=== PATIENT | female | born 1960 | race Caucasian/White ===

== ENCOUNTER 2019-01-29 19:59 | Inpatient (IN) | payer MEDICARE ==
[~2019-01-29] VITALS: Ht 149.9 cm; Wt 89.7 kg
[2019-01-29] VITALS (9 sets, daily range): BP systolic 154–192; BP diastolic 85–134; BMI 33.9
--- NOTE | ~2019-01-29 | HEMODYNAMI ---
PATIENT:ZEN HEAD MEDICAL RECORD: [id number] : 60 LOCATION:[facility] D2305 ADMISSION DATE: 01/29/19 Generatedon:01/31/201911:56 Patient name: ZEN HEAD Patient #: [id number] SSN: [id number] : 1960 Date of study: 01/31/2019 Page: Of Hemodynamic Procedure Report Patient Data Patient Demographics Procedure consent was obtained First Name: ZEN Gender: Female Last Name: SONIDO : 1960 Patient #: [id number] Age: 58 year(s) Race: SSN: [id number] Additional ID: [id number] Contact details Address: [address] [place], [place] [address] State: [place] City: [place] Zip code: [address] Past Medical History Allergies Allergen Reaction Date Comments Reported Sulfa drugs 01/31/2019 Admission Admission Data Admission Date: 01/29/2019 Admission Time: 20:59 Arrival Date: 01/31/2019 Arrival Time: 0:00 Room #: D.2305 Insurance Payor: Medicare [facility] #: [id number] Height (in.): 59 BSA: 1.71 (m2) Height (cm.): 149.86 BMI: 33.89 (kg/m2) Weight (lbs.): 167.77 Weight (kg.): 76.1 Lab Results Lab Result Date: 01/31/2019 Lab Result Time: 0:00 Biochemistry Name Units Result Min Max BUN mg/dl 30 --(----)-* 7 18 Creatinine mg/dl 1.9 --(----)-* 0.6 1.3 eGFR ml/min 29 *-(----)-- 90 120 NONAFRICAN CBC Name Units Result Min Max Hematocrit % 37.7 *-(----)-- 42 54 Hemoglobin g/dl 11.6 *-(----)-- 13.5 17.5 Procedure Procedure Types Cath Procedure Diagnostic Procedure [facility] w/Coronaries Sedation Charges Moderate Sedation up to 30 minutes Procedure Description Procedure Date Procedure Date: 01/31/2019 Procedure Start Time: 11:11 Procedure End Time: 11:53 Procedure Staff Name Function Mil Goodson MD Performing Physician Jackelyn Finn RT Monitor Geena Pro RT Monitor Randell Garcia RN Nurse Roel Eng RT Scrub Leigh Fortune RT Scrub Procedure Data Cath Procedure Fluoroscopy Diagnostic fluoroscopy Total fluoroscopy Time: time: 12.7 min 12.7 min Diagnostic fluoroscopy Total fluoroscopy dose: dose: 1253 mGy 1253 mGy Contrast Material Contrast Material Type Amount (ml) Isovue 300 158 Entry Location Entry Primary Successful Side Size Upsize Upsize Entry Closure Succes sful Closure Location (Fr) 1 (Fr) 2 (Fr) Remarks Device Remarks Femoral Right 5 Fr 6 Fr Exoseal artery Short Estimated blood loss: 10 ml Diagnostic catheters Device Type Used For End Catheter Placement MULTIPACK JL 4.0 5Fr Procedure catheter MULTIPACK 3DRC 5Fr catheter MULTIPACK Pigtail 5 Fr catheter DIAGNOSTIC AL1 5Fr Procedure catheter ([id number]) Procedure Complications No complications Procedure Medications Medication Administration Route Dosage 0.9% NaCl I.V. 100 ml/hr Oxygen etCO2 Nasal cannula 4 l/min Heparin Flush Bag added to field 2 bags (1000units/500ml NS) Lidocaine 2% added to field 20 Oxygen 8 l/min Versed I.V. 2 mg Fentanyl I.V. 100 mcg Versed I.V. 2 mg Fentanyl I.V. 50 mcg Fentanyl I.V. 50 mcg Heparin Bolus I.V. 7500 units Hemodynamics Rest BSA: 1.71 (m2) HGB: 11.6 (g/dl) O2 Consumption: Estimated: 187.59 (ml/min) O2 Co nsumption indexed: Estimated:109.7 (ml/min/m) Heart Rate: 108 (bpm) Gradients Valve Time Site Site Mean SEP/DFP Peak To Heart Use 1 2 (mmHg) (sec/min) Peak Rate (mmHg) (bpm) Aortic 11:21 LV AO 53 Snapshots Pre Cath Intra NCS Post Cath Vital Signs Time Heart Resp SPO2 etCO2 NIBP (mmHg) Rhythm Pain Sedation Rate (ipm) (%) (mmHg) Status Level (bpm) 10:37:56 105 19 90 33.7 160/94(117) NSR 0 (11) 9(A) , No pain 10:42:26 102 13 90 36.7 152/92(116) NSR 0 (11) 9(A) , No pain 10:46:52 103 26 87 16.4 150/90(118) NSR 0 (11) 9(A) , No pain 10:51:17 106 15 87 20.2 160/94(131) NSR 0 (11) 9(A) , No pain 10:55:45 101 17 86 22.4 160/99(130) NSR 0 (11) 9(A) , No pain 11:00:15 106 17 90 0 155/91(120) NSR 0 (11) 9(A) , No pain 11:04:44 106 20 94 0 152/87(122) NSR 0 (11) 9(A) , No pain 11:09:10 103 18 94 0 147/93(114) NSR 0 (11) 9(A) , No pain 11:13:34 107 19 95 0 152/98(115) NSR 0 (11) 9(A) , No pain 11:18:01 108 18 95 0 153/91(113) NSR 0 (11) 9(A) , No pain 11:22:29 105 15 92 0 144/88(115) NSR 0 (11) 9(A) , No pain 11:26:51 107 21 93 0 158/91(119) NSR 0 (11) 9(A) , No pain 11:31:17 104 16 94 0 144/92(113) NSR 0 (11) 9(A) , No pain 11:35:41 107 29 94 0 148/86(112) NSR 0 (11) 9(A) , No pain 11:40:01 105 26 93 0 149/87(100) NSR 0 (11) 9(A) , No pain 11:44:28 108 18 95 0 155/90(118) NSR 0 (11) 9(A) , No pain 11:48:54 106 15 95 0 156/95(124) NSR 0 (11) 9(A) , No pain 11:53:23 109 17 96 0 159/97(127) NSR 0 (11) 9(A) , No pain Medications Time Medication Route Dose Verified Delivered Reason Notes Effectiveness by by 10:38:37 0.9% NaCl I.V. 100 Randell Randell Per physician ml/hr Radha Garcia RN RN 10:38:52 Oxygen etCO2 4 Randell Randell for low 02 sats Nasal l/min Radha Garcia cannula RN RN 10:39:03 Heparin Flush added 2 Randell Randell used for Bag to bags Radha Garcia procedure (1000units/500ml field RN RN NS) 10:39:15 Lidocaine 2% added 20ml Randell Randell for local to vial Lorjuan Garcia anesthetic field RN RN 10:58:49 Oxygen simple 8 Randell Randell for low 02 sats mask l/min Radha Garcia RN RN 11:11:30 Versed I.V. 2 mg Randell Randell for sedation Radha Garcia RN RN 11:11:52 Fentanyl I.V. 100 Randell Randell for sedation mcg Radha Garcia RN RN 11:13:39 Versed I.V. 2 mg Randell Randell for sedation Radha Garcia RN RN 11:15:16 Fentanyl I.V. 50 Randell Randell for sedation mcg Radha Garcia RN RN 11:27:51 Fentanyl I.V. 50 Randell Randell for sedation mcg Radha Garcia RN RN 11:37:15 Heparin Bolus I.V. 7,500 Randell Randell for units Radha Garcia anticoagulation RN synthetic plasterer Log Time Note 10:24:23 Procedure Status Urgent Heart Cath (IP). 10:24:25 Roel Eng RT(R) sent for patient. Start room use. 10:24:29 Time tracking: Regular hours (M-F 7:00 - 5:00) 10:24:34 Plan of Care:Hemodynamics will remain stable., Cardiac rhythm will remain stable., Comfort level will be maintained., Respiratory function will remain adequate., Patient/ family verbilizes understanding of procedure., Procedure tolerated without complication., Recovers from procedure without complications.. 10:24:46 Lab results completed and on chart. 10:25:04 Stress Test: no; N/A ? 10:25:09 Risk of Mortality: 1 10:25:14 Risk of blood transfusion: 3.7 10:25:18 Risk of HUMZA: 10.2 10:26:04 Informed consent obtained and on chart 10:28:50 Arrival Date: 01/31/2019 12:00:00 AM 10:28:56 Insurance Payor : Medicare 10:29:08 Patient Height : 59 inches 10:29:14 Patient Weight : 167.77 lbs 10:29:27 Diagnostic Cath Status : Elective 10:30:28 Patient received from ICU to CCL 1 Alert and oriented. Tansferred to table in Supine position. 10:30:29 Warm blankets applied, and rustam hugger turned on for patient comfort. 10:30:30 Correct patient and procedure confirmed by team. 10:30:33 ECG and BP/O2 sat monitors applied to patient. 10:30:38 Previous problem with sedation/anesthesia? No ? 10:30:46 H&P Date Dictated: 01/31/2019 Within 30 days and on chart.. 10:30:48 Pre-procedure instructions explained to patient. 10:30:48 Pre-op teaching completed and patient verbalized understanding. 10:30:59 Patient NPO since Midnight. 10:31:26 Is the patient allergic to Iodine/contrast media? No. 10:31:28 Was the patient premedicated? N/A 10:31:36 Patient diabetic? Yes. 10:31:39 If diabetic: On Metformin? Yes 10:31:50 Patient not . Patient is over age 55. 10:32:01 Snore? No 10:32:02 Sleep apnea? No 10:32:04 Deviated septum? No 10:32:05 Opens mouth fully? Yes 10:32:06 Sticks out tongue? Yes 10:32:09 Airway obstruction? No ? 10:32:12 Dentures? Yes in tight 10:34:12 If on Metformin: Last Dose? 01/29/2019 10:34:49 Is patient on blood thinner?No 10:35:16 Pre procedure: right dorsailis pedis pulse 2+ Normal; easily identifiable; not easily obliterated 10:35:29 IV patent on arrival in right hand with 0.9% NaCl at O. 10:36:00 Patient pain scale 0/10 ANXIOUS. 10:36:25 Right groin area was prepped with chlora-prep and draped in sterile fashion 10:36:27 Alarms reviewed by R. N. 10:36:27 Sharps counted by scrub and verified by R.N. 10:36:36 Vital chart was started 10:36:54 Rhythm: sinus tachycardia 10:38:37 0.9% NaCl 100 ml/hr I.V. was administered by Randell Garcia RN; Per physician; Verbal order read back and verified. 10:38:52 Oxygen 4 l/min etCO2 Nasal cannula was administered by Randell Garcia RN; for low 02 sats; Verbal order read back and verified. 10:39:03 Heparin Flush Bag (1000units/500ml NS) 2 bags added to field was administered by Randell Garcia RN; used for procedure; Verbal order read back and verified. 10:39:15 Lidocaine 2% 20ml vial added to field was administered by Randell Garcia RN; for local anesthetic; Verbal order read back and verified. 10:39:31 Use device set Femoral Dx 10:39:39 ACIST Syringe (70274) opened to sterile field. 10:39:39 Bag Decanter (2002S) opened to sterile field. 10:39:45 Medline Cath Pack ([id number]) opened to sterile field. 10:39:47 ACIST Hand Control (26445) opened to sterile field. 10:39:48 ACIST Manifold (12286) opened to sterile field. 10:39:50 Tegaderm 4 x 4 (1626W) opened to sterile field. 10:39:56 DIAGNOSTIC Multipack 5Fr catheter set (BV9326) opened to sterile field. 10:39:58 SHEATH 5FR [place] (FQU422) opened to sterile field. 10:39:58 EMERALD Guide Wire (218-208) opened to sterile field. 10:40:12 Full Disclosure recording started 10:40:27 Family in waiting room. 10:57:16 Zero performed for pressure channel P1 10:57:32 Baseline sample Acquired. 10:58:49 Oxygen 8 l/min simple mask was administered by Randell Garcia RN; for low 02 sats; Verbal order read back and verified. 11:08:42 --------ALL STOP TIME OUT------ 11:08:44 Final Timeout: patient, procedure, and site verified with staff and physician. All members of the team are in agreement. 11:08:47 Right groin site verified by team. 11:08:52 Fire Safety Assessment: A--An alcohol-based skin anteseptic being used preoperatively., C--Open oxygen or nitrous oxide is being used., D--An ESU, laser, or fiber-optic light is being used. 11:08:57 Physical assessment completed. ASA score P 2 - A patient with mild systemic disease as per Mil Goodson MD. 11:09:02 4) 15-29 [place] reduced kidney function. 11:09:10 Maximum allowable contrast dose (3.7 X eGFR X 0.75)80 ml. 11:09:16 Sedation plan: IV Moderate Sedation Medication:Versed, Fentanyl 11:11:05 Procedure started. 11:11:30 Versed 2 mg I.V. was administered by Randell Garcia RN; for sedation; Verbal order read back and verified. 11:11:32 Local anesthetic to right femoral artery with Lidocaine 2% by Mil Goodson MD.INITIAL ACCESS ONLY 11:11:52 Fentanyl 100 mcg I.V. was administered by Randell Garcia RN; for sedation; Verbal order read back and verified. 11:12:42 Zero performed for pressure channel P1 11:13:39 Versed 2 mg I.V. was administered by Randell Garcia RN; for sedation; Verbal order read back and verified. 11:14:34 A 5 Fr sheath was inserted into the Right Femoral artery 11:14:57 A MULTIPACK JL 4.0 5Fr catheter was advanced over the wire and used for Procedure. 11:15:16 Fentanyl 50 mcg I.V. was administered by Randell Garcia RN; for sedation; Verbal order read back and verified. 11:16:08 LCA angiography performed. 11:17:01 Catheter exchanged over wire. 11:17:09 A MULTIPACK 3DRC 5Fr catheter was advanced over the wire and used for . 11:19:11 RCA angiography performed. 11:19:13 ACCDominant side:Left 11:19:26 Catheter exchanged over wire. 11:20:33 A MULTIPACK Pigtail 5 Fr catheter was advanced over the wire and used for . 11:21:00 LV gram done using MALONE 11:21:04 Injector settings: Ml/sec: 10, Volume: 20, 11:21:06 LV hemodynamics recorded. 11:21:16 EF : 60 % 11:21:35 Catheter exchanged over wire. 11:22:18 A DIAGNOSTIC AL1 5Fr catheter ([id number]) was advanced over the wire and used for Procedure. 11:24:57 RCA angiography performed. 11:25:15 SHEATH 6FR [place] (LDD744) opened to sterile field. 11:25:22 Catheter exchanged over wire. 11:25:28 INFLATOR Merit BasixCompak (KM7965) opened to sterile field. 11:25:32 TUBING High Pressure Extension Tubing (Goodson) (CK1969F) opened to sterile field. 11:25:33 BMW 300cm Straight [place] 2 wire (2406460) opened to sterile field. 11:25:48 GUIDE 6FR AL 1.0 catheter (MM3KR70) opened to sterile field. 11:26:10 Sheath upsized to a 6 Fr Short. 11:26:24 6 Fr AL 1 guide catheter was inserted over the wire 11:27:51 Fentanyl 50 mcg I.V. was administered by Randell Garcia RN; for sedation; Verbal order read back and verified. 11:30:09 Guide Catheter removed. unable to cannulate vessel. 11:30:23 GUIDE 6FR AR 2.0 catheter (PO4YV81) opened to sterile field. 11:30:40 6 Fr AR 2 guide catheter was inserted over the wire 11:32:44 Guide Catheter removed. unable to cannulate vessel. 11:32:57 GUIDE 6FR AR 1.0 catheter (CB3HL32) opened to sterile field. 11:33:20 6 Fr AR1 guide catheter was inserted over the wire 11:36:59 Pre PCI Site: [place] mRCA has 99% stenosis. 11:37:07 BMW wire advanced. 11:37:15 Heparin Bolus 7,500 units I.V. was administered by Randell Garcia RN; for anticoagulation; Verbal order read back and verified. 11:37:41 Wire removed. 11:40:08 Guide Catheter removed. unable to cannulate vessel. 11:41:25 GUIDE 6FR ART 3.5 catheter ([id number]) opened to sterile field. 11:41:56 6 Fr ART 3.5 guide catheter was inserted over the wire 11:45:32 Guide Catheter removed. unable to cannulate vessel. 11:45:41 GUIDE 6FR ART 4.0 catheter ([id number]) opened to sterile field. 11:46:01 6 Fr ART 4.0 guide catheter was inserted over the wire 11:47:33 The EMERGE OTW 2.5 x 15 balloon ([id number]) was advanced and then removed because it was opened but not used 11:48:39 Guide catheter removed. 11:48:49 EXOSEAL 6Fr (EX600) opened to sterile field. 11:49:09 Sheath removed intact; hemostasis achieved with Exoseal to the Right Femoral artery. 11:49:16 Procedure ended.(Physican Out) 11:49:25 Fluoroscopy time 12.70 minutes. 11:49:30 Fluoroscopy dose: 1253 mGy 11:49:30 Flurop Dose total: 1253 11:49:37 Dose Area Product 41955 mGy/cm. 11:49:46 Contrast amount:Isovue 300 158ml. 11:49:48 Maximum allowable dose exceeded? Yes. 11:49:50 Sharps counted by scrub and verified by R.N. 11:49:53 Post Procedure Pulses reassessed and unchanged 11:49:58 Post procedure: right dorsailis pedis pulse 2+ Normal; easily identifiable; not easily obliterated. 11:50:02 Post-procedure physical assessment completed. ASA score P 2 - A patient with mild systemic disease as per Mil Goodson MD. 11:50:06 Post procedure rhythm: unchanged. 11:50:13 Estimated blood loss: 10 ml 11:50:17 Post procedure instruction explained to patient.Patient verbalizes understanding. 11:50:18 Patient needs reinforcement of post procedure teaching. 11:51:03 Procedure type changed to Cath procedure, Diagnostic procedure, LHC, [facility] w/Coronaries, Sedation Charges, Moderate Sedation up to 30 minutes 11:52:46 Procedure and supply charges have been captured, reviewed, submitted and are correct. 11:52:52 Procedure Complication : No complications 11:52:55 Vital chart was stopped 11:53:11 [facility] Findings: MVD- MD will discuss options w/ pt 11:53:14 Operative report dictated upon procedure completion. 11:53:15 See physician's report for complete and final results. 11:53:20 Report given to ICU. 11:53:28 Patient transfered to ICU with Bed. 11:53:31 Procedure ended. 11:53:31 Full Disclosure recording stopped 11:55:16 End room use (Document Last) 11:55:29 End room use (Document Last) 11:55:51 End room use (Document Last) Intervention Summary Intervention Notes Time ActionType Lesion and Equipment Action# Pressure Duration Attributes Used 11:47:33 Discard EMERGE OTW Balloon 2.5 x 15 balloon ([id number]) Device Usage Item Name Manufacture Quantity Catalog Number Hospital Part Current Min imal Lot# / Charge Number Stock Stock Serial# Code ACIST Acist 1 73199 709418 891528 908360 20 Syringe Medical (68617) Systems Inc Bag Decanter Microtek 1 2001S 220066 79423 890110 5 (2001S) Medical Inc. Medline Cath Medline 1 [id number] 831814 98683 899262 5 Pack ([id number]) ACIST Hand Acist 1 30974 376261 156371 476959 5 Control Medical (33267) Systems Inc ACIST Acist 1 36278 829469 810206 033359 5 Manifold Medical (84771) Systems Inc Tegaderm 4 x 3M 1 1626W 438522 016895 505789 5 4 (1626W) DIAGNOSTIC Cardinal 1 UO8454 025091 65796 390315 30 Multipack Health 5Fr catheter set (PB0854) SHEATH 5FR Terumo 1 HKY184 218760 443072 189651 5 [place] (SMR012) EMERALD Cardinal 1 502-455 383954 179774 958391 5 Guide Wire Health (502-455) MULTIPACK JL Cardinal 1 040900 5 4.0 5Fr Health catheter MULTIPACK Cardinal 1 711575 5 3DRC 5Fr Health catheter MULTIPACK Cardinal 1 266339 5 Pigtail 5 Fr Health catheter DIAGNOSTIC Cardinal 1 489154W 374588 708860 766555 15 AL1 5Fr Health catheter (669977B) SHEATH 6FR Terumo 1 KYU507 764359 367943 337686 40 [place] (BDE283) INFLATOR Merit 1 XL8959 024744 977622 902534 15 Merit Medical BasixCompak (BP2138) TUBING High Merit 1 TQ2717N 301356 91801 071620 10 Pressure Medical Extension Tubing (Goodson) (GM2573N) BMW 300cm Griffith[place] 1 4444008 672374 344932 310454 5 Straight Vascular [place] 2 wire (7217083) GUIDE 6FR AL Medtronic 1 EX6XY80 565559 08367 879315 1 1.0 catheter (MR9FU78) GUIDE 6FR AR Medtronic 1 VQ6QW63 079879 56900 038172 1 2.0 catheter (BI7VB45) GUIDE 6FR AR Medtronic 1 SL5QT95 976086 77634 839729 1 1.0 catheter (YY5HJ97) GUIDE 6FR [place] 1 [id number] 182186 917303 037012 0 ART 3.5 Scientific catheter (931681518) GUIDE 6FR [place] 1 [id number] 095813 818067 482170 0 ART 4.0 Scientific catheter (346205023) EMERGE OTW [place] 1 [id number] 476885 892901 768976 5 [id number] 2.5 x 15 Scientific balloon ([id number]) EXOSEAL 6Fr Cardinal 1 EX600 279145 673398 732447 10 (EX600) Health Signature Audit [place] Stage Time Signature Unsigned Intra-Procedure 01/31/2019 Geena Pro 11:55:29 AM RT(R) Intra-Procedure 01/31/2019 Randell 11:55:51 AM Radha HOUGH Intra-Procedure 01/31/2019 Mil Goodson MD 11:56:[address] [id number]
--- NOTE | ~2019-01-29 | HEMODYNAMI ---
PATIENT:ZEN HEAD MEDICAL RECORD: [id number] : 60 LOCATION:[facility] D2305 ADMISSION DATE: 01/29/19 Generatedon:02/01/201914:27 Patient name: ZEN HEAD Patient #: [id number] SSN: [id number] : 1960 Date of study: 02/01/2019 Page: Of Hemodynamic Procedure Report Patient Data Patient Demographics Procedure consent was obtained First Name: ZEN Gender: Female Last Name: SONIDO : 1960 Patient #: [id number] Age: 58 year(s) Race: SSN: [id number] Additional ID: [id number] Contact details Address: [address] [place], [place] [address] State: [place] City: [place] Zip code: [address] Past Medical History Allergies Allergen Reaction Date Comments Reported Sulfa drugs 01/31/2019 Admission Admission Data Admission Date: 01/29/2019 Admission Time: 20:59 Arrival Date: 01/31/2019 Arrival Time: 0:00 Room #: D.2305 Insurance Payor: Medicare [facility] #: [id number] Height (in.): 59 BSA: 1.71 (m2) Height (cm.): 149.86 BMI: 33.89 (kg/m2) Weight (lbs.): 167.77 Weight (kg.): 76.1 Lab Results Lab Result Date: 01/31/2019 Lab Result Time: 0:00 Biochemistry Name Units Result Min Max BUN mg/dl 30 --(----)-* 7 18 Creatinine mg/dl 1.9 --(----)-* 0.6 1.3 eGFR ml/min 29 *-(----)-- 90 120 NONAFRICAN CBC Name Units Result Min Max Hematocrit % 37.7 *-(----)-- 42 54 Hemoglobin g/dl 11.6 *-(----)-- 13.5 17.5 Procedure Procedure Types Cath Procedure Diagnostic Procedure Sedation Charges Moderate Sedation up to 30 minutes PCI Procedure Coronary Stent Coronary Stent Initial Procedure Description Procedure Date Procedure Date: 02/01/2019 Procedure Start Time: 13:51 Procedure End Time: 14:17 Procedure Staff Name Function Aleyda Echolsen RT Scrub Tez Macario MD Performing Physician Damaris Mckinney RT Monitor Beatrice Ro RN Nurse Procedure Data Cath Procedure Fluoroscopy Diagnostic fluoroscopy Total fluoroscopy Time: time: 10.6 min 10.6 min Diagnostic fluoroscopy Total fluoroscopy dose: 810 dose: 810 mGy mGy Contrast Material Contrast Material Type Amount (ml) Isovue 300 122 Entry Location Entry Primary Successful Side Size Upsize Upsize Entry Closure Succes sful Closure Location (Fr) 1 (Fr) 2 (Fr) Remarks Device Remarks Femoral Left 6 Fr Exoseal artery Short Estimated blood loss: 10 ml Procedure Complications No complications Procedure Medications Medication Administration Route Dosage 0.9% NaCl I.V. 100 ml/hr Oxygen etCO2 Nasal cannula 5 l/min Lidocaine 2% added to field 20 Heparin Flush Bag added to field 2 bags (1000units/500ml NS) Versed I.V. 2 mg Fentanyl I.V. 50 mcg Heparin Bolus I.V. 4000 units Integrilin (Bolus I.V. 6.8 ml 2mg/ml) Integrilin (Bolus wasted 3.2 ml 2mg/ml) Plavix P.O. 600 mg Hemodynamics Rest BSA: 1.71 (m2) HGB: 11.6 (g/dl) O2 Consumption: Estimated: 178.73 (ml/min) O2 Co nsumption indexed: Estimated:104.52 (ml/min/m) Heart Rate: 94 (bpm) Snapshots Pre Cath Intra NCS Post Cath Vital Signs Time Heart Resp SPO2 etCO2 NIBP (mmHg) Rhythm Pain Sedation Rate (ipm) (%) (mmHg) Status Level (bpm) 13:47:44 97 13 95 30.5 136/87(105) NSR 0 (11) 10(A) , No pain 13:49:25 95 16 95 21 144/86(110) NSR 0 (11) 10(A) , No pain 13:52:45 93 21 96 27.4 141/84(116) NSR 0 (11) 10(A) , No pain 13:56:57 96 21 96 19 138/84(107) NSR 0 (11) 10(A) , No pain 14:01:11 98 18 96 13.7 145/85(110) NSR 0 (11) 10(A) , No pain 14:05:25 98 18 97 12.9 141/86(113) NSR 0 (11) 10(A) , No pain 14:09:39 92 17 96 13.7 148/94(121) NSR 0 (11) 10(A) , No pain 14:13:57 96 24 96 33.5 146/91(112) NSR 0 (11) 10(A) , No pain Medications Time Medication Route Dose Verified Delivered Reason Notes Effectiveness by by 13:45:23 0.9% NaCl I.V. 100 Tez Beatrice used for ml/hr [facility] procedure MD HOUGH 13:45:34 Oxygen etCO2 5 Tez Beatrice used for Nasal l/min [facility] procedure cannula MD HOUGH 13:45:38 Lidocaine 2% added 20ml Tez Reagan for local to vial [facility] anesthetic field MD ORNELAS 13:45:42 Heparin Flush added 2 Tez Tez used for Bag to bags [facility] procedure (1000units/500ml field MD ORNELAS NS) 13:48:03 Fentanyl I.V. 50 Tez Beatrice for sedation mcg [facility] Ro MD, RN 13:48:51 Versed I.V. 2 mg Tez Beatrice for sedation [facility] Ro MD, RN 14:01:00 Heparin Bolus I.V. 4000 Tez Oakesa for verif ied units [facility] anticoagulation with Dr. MD HOUGH [place] 14:01:18 Integrilin I.V. 6.8 Tez Beatrice for (Bolus 2mg/ml) ml [facility] Ro antiplatelet RN therapy 14:11:32 Integrilin wasted 3.2 Tez Beatrice for (Bolus 2mg/ml) ml [facility] Ro antiplatelet RN therapy 14:11:41 Plavix P.O. 600 Tez Oakesa for mg [facility] Wal[facility] Ro antiplatelet RN therapy Procedure Log Time Note 8:27:01 Procedure Status Urgent Heart Cath (IP). 8:27:02 Time tracking: Regular hours (M-F 7:00 - 5:00) 8:27:06 Plan of Care:Hemodynamics will remain stable., Cardiac rhythm will remain stable., Comfort level will be maintained., Respiratory function will remain adequate., Patient/ family verbilizes understanding of procedure., Procedure tolerated without complication., Recovers from procedure without complications.. 8:27:07 Roel FRANCIS(R) sent for patient. Start room use. 8:27:09 Signed procedure consent form obtained from patient. 8:36:33 Patient allergic to Sulfa drugs 8:37:33 Lab Result : Hemoglobin 11.6 g/dl 8:37:33 Lab Result : Hematocrit 37.7 % 8:37:33 Lab Result : eGFR NONAFRICAN 29 ml/min 8:37:33 Lab Result : BUN 30 mg/dl 8:37:33 Lab Result : Creatinine 1.9 mg/dl 13:22:33 Patient Weight : 167.77 lbs 13:22:33 Patient Height : 59 inches 13:26:37 Patient received from ICU to [facility] 2 Alert and oriented. Tansferred to table in Supine position. 13:26:43 H&P Date Dictated: 02/01/2019 Within 30 days and on chart.. 13:26:45 Pre-procedure instructions explained to patient. 13:29:21 Warm blankets applied, and rustam hugger turned on for patient comfort. 13:29:22 ECG and BP/O2 sat monitors applied to patient. 13:29:22 Correct patient and procedure confirmed by team. 13:29:36 Snore? Yes 13:29:38 Sleep apnea? Yes 13:29:46 Was the patient premedicated? Yes 13:29:52 Is patient on blood thinner?Yes 13:29:54 Is the patient allergic to Iodine/contrast media? No. 13:30:04 Dentures? No ? 13:35:23 Patient diabetic? Yes. 13:35:25 If diabetic: On Metformin? No 13:35:33 Patient pain scale 0/10 ?. 13:35:47 IV patent on arrival in right forearm with 0.9% NaCl at KVO. 13:35:51 Lab results completed and on chart. 13:35:59 Stress Test: no; N/A ? 13:36:06 Left groin area was prepped with chlora-prep and draped in sterile fashion 13:36:08 Sharps counted by scrub and verified by R.N. 13:36:08 Alarms reviewed by R. N. 13:36:09 Physician paged 13:36:22 Baseline sample Acquired. 13:36:28 Rhythm: sinus rhythm 13:44:54 Physician arrived 13:44:55 Final Timeout: patient, procedure, and site verified with staff and physician. All members of the team are in agreement. 13:44:55 --------ALL STOP TIME OUT------ 13:44:57 Left groin site verified by team. 13:45:12 Fire Safety Assessment: A--An alcohol-based skin anteseptic being used preoperatively., C--Open oxygen or nitrous oxide is being used., D--An ESU, laser, or fiber-optic light is being used. 13:45:23 0.9% NaCl 100 ml/hr I.V. was administered by Beatrice Ro RN; used for procedure; Verbal order read back and verified. 13:45:29 Diagnostic Cath Status : Elective 13:45:34 Oxygen 5 l/min etCO2 Nasal cannula was administered by Beatrice Ro RN; used for procedure; Verbal order read back and verified. 13:45:38 Lidocaine 2% 20ml vial added to field was administered by Tez Macario MD; for local anesthetic; Verbal order read back and verified. 13:45:42 Heparin Flush Bag (1000units/500ml NS) 2 bags added to field was administered by Tez Macario MD; used for procedure; Verbal order read back and verified. 13:48:03 Fentanyl 50 mcg I.V. was administered by Beatrice Ro RN; for sedation; Verbal order read back and verified. 13:48:21 Vital chart was started 13:48:51 Versed 2 mg I.V. was administered by Beatrice Ro RN; for sedation; Verbal order read back and verified. 13:48:58 Physical assessment completed. ASA score P 3 - A patient with severe systemic disease as per Tez Macario MD. 13:49:11 3b) 30-44 Moderately reduced kidney function. 13:49:28 Maximum allowable contrast dose (3.7 X eGFR X 0.75)97 ml. 13:49:32 Sedation plan: IV Moderate Sedation Medication:Versed, Fentanyl 13:51:41 Vital chart was started 13:51:46 Procedure started. 13:51:46 Full Disclosure recording started 13:51:53 Local anesthetic to left femerol artery with Lidocaine 2% by Tez Maacrio MD.INITIAL ACCESS ONLY 13:52:02 A 6 Fr Short sheath was inserted into the Left Femoral artery 13:52:05 GUIDE 6FR HS I SH catheter ([id number]) opened to sterile field. 13:52:40 6 Fr HS1SH guide catheter was inserted over the wire 13:54:51 UNABLE TO ACCESS W HS1. EXCHANGED FOR HS2 13:55:02 GUIDE 6FR HS II SH catheter ([id number]) opened to sterile field. 13:56:59 Catheter removed. unable to cannulate vessel. 13:58:44 GUIDE 6FR LCB catheter (LA6LCB) opened to sterile field. 13:59:49 wHISPER wire advanced. 14:01:00 Heparin Bolus 4000 units I.V. was administered by Beatrice Ro RN; for anticoagulation; verified with Dr. Rodriguez Verbal order read back and verified. 14:01:18 Integrilin (Bolus 2mg/ml) 6.8 ml I.V. was administered by Beatrice Ro RN; for antiplatelet therapy; Verbal order read back and verified. 14:07:34 Guide Catheter removed. unable to cannulate vessel. 14:07:38 GUIDE 6FR JR 4.0 catheter ([id number]) opened to sterile field. 14:07:51 6 Fr jr4 guide catheter was inserted over the wire 14:08:04 WHISPER wire advanced. 14:10:03 Place stent Inflation Number: 1 A YANG OTW 2.5 x 15 stent ([id number]) was prepped and advanced across the Mid RCA1 99. The stent was deployed at 14 JERRY for 0:27 (min:sec) 0. 14:11:27 Inflation number: 2 The stent balloon was then re-inflated across the Mid RCA1 0 to 6 JERRY for 0:13 (min:sec) . 14:11:32 Integrilin (Bolus 2mg/ml) 3.2 ml wasted was administered by Beatrice Ro RN; for antiplatelet therapy; Verbal order read back and verified. 14:11:41 Plavix 600 mg P.O. was administered by Beatrice Ro RN; for antiplatelet therapy; Verbal order read back and verified. 14:12:23 Wire removed. 14:12:23 Guide catheter removed. 14:12:49 Sheath removed intact; hemostasis achieved with Exoseal to the Left Femoral artery. 14:12:52 Procedure ended.(Physican Out) 14:13:13 Fluoroscopy time 10.60 minutes. 14:13:18 Fluoroscopy dose: 810 mGy 14:13:18 Flurop Dose total: 810 14:13:26 Dose Area Product 87875 mGy/cm. 14:13:29 Contrast amount:Isovue 300 122ml. 14:13:38 Maximum allowable dose exceeded? Yes. 14:13:52 Sharps counted by scrub and verified by R.N. 14:13:55 Insertion/operative site no bleeding no hematoma. 14:13:59 Post-op/insertion site Left Femoral artery dressed using a 4 x 4 and Tegaderm. 14:14:02 Post Procedure Pulses reassessed and unchanged 14:14:10 Post-procedure physical assessment completed. ASA score P 3 - A patient with severe systemic disease as per Tez Macario MD. 14:14:19 Post procedure rhythm: unchanged. 14:14:24 Estimated blood loss: 10 ml 14:14:27 Post procedure instruction explained to patient.Patient verbalizes understanding. 14:14:54 Procedure type changed to Cath procedure, Diagnostic procedure, Sedation Charges, Moderate Sedation up to 30 minutes, PCI procedure, Coronary Stent, Coronary Stent Initial 14:14:56 Procedure and supply charges have been captured, reviewed, submitted and are correct. 14:15:23 Use device set Radial Dx or PCI 14:15:25 ACIST Syringe (46390) opened to sterile field. 14:15:28 Medline Cath Pack ([id number]) opened to sterile field. 14:15:29 Bag Decanter () opened to sterile field. 14:15:30 ACIST Hand Control (35274) opened to sterile field. 14:15:31 ACIST Manifold (79426) opened to sterile field. 14:15:31 Tegaderm 4 x 4 (1626W) opened to sterile field. 14:15:38 EMERALD Guide Wire (806-309) opened to sterile field. 14:15:58 EXOSEAL 6Fr (EX600) opened to sterile field. 14:17:02 Procedure Complication : No complications 14:17:09 Vital chart was stopped 14:17:12 LHC Findings: MVD- PCI performed (see procedure note) 14:17:31 Report given to ICU. 14:17:35 Patient transfered to ICU with Bed. 14:17:37 Procedure ended. 14:17:37 Full Disclosure recording stopped 14:17:43 End room use (Document Last) 14:18:19 ACT drawn and resulted at 242 seconds. (normal therapeutic range 180-240 seconds). 14:24:48 Risk of Mortality: 3.8 14:24:53 Risk of blood transfusion: 2.6 14:24:58 Risk of HUMZA: 6.9 14:25:15 FEMSTOP Gold ([id number]) opened to sterile field. 14:25:59 FEMSTOP APPLIED AT 130 TO PREVENT BLEEDING BECAUSE THE PATIENT HAS A COUGH. Intervention Summary Intervention Notes Time ActionType Lesion and Equipment Action# Pressure Duration Attributes Used 14:10:03 Place stent Mid RCA1 YANG OTW 2.5 1 14 00:27 x 15 stent ([id number]) 14:11:27 Reinflate Mid RCA1 YANG OTW 2.5 2 6 00:13 stent x 15 stent balloon ([id number]) Device Usage Item Name Manufacture Quantity Catalog Hospital Part Current Minim al Lot# / Number Charge Number Stock Stock Serial# Code GUIDE 6FR HS Medtronic 1 [id number] 03377 [id number] 1 I SH catheter ([id number]) GUIDE 6FR HS Medtronic 1 [id number] 958625 62706 725146 1 II SH catheter ([id number]) GUIDE 6FR LCB Medtronic 1 LA6LCB 326549 01421 031256 1 catheter (LA6LCB) GUIDE 6FR JR Medtronic 1 [id number] 919205 85022 685235 1 4.0 catheter ([id number]) YANG OTW 2.5 Medtronic 1 [id number] 381518 57688 955291 5 [id number] x 15 stent ([id number]) ACIST Syringe Acist 1 57281 264690 385906 407096 20 (70988) Medical Systems Inc Medline Cath Medline 1 [id number] 715959 33597 480739 5 Pack ([id number]) Bag Decanter Microtek 1 2001S 665884 35640 002443 5 () Medical Inc. ACIST Hand Acist 1 44562 064427 033432 812002 5 Control Medical (89416) Systems Inc ACIST Acist 1 40739 892553 092840 332310 5 Manifold Medical (75996) Systems Inc Tegaderm 4 x 3M 1 1626W 921623 659427 108721 5 4 (1626W) EMERALD Guide Cardinal 1 502-455 874134 752362 130799 5 Wire Health (502455) EXOSEAL 6Fr Cardinal 1 EX600 543740 042786 631397 10 (EX600) Health FEMSTOP Gold [facility] 1 D49258 034041 040771 911115 5 ([id number]) Signature Audit [place] Stage Time Signature Unsigned Intra-Procedure 02/01/2019 Damaris Mckinney 1:24:51 PM RT(R) RT(R) 02/01/2019 1:25:54 PM Intra-Procedure 02/01/2019 Damaris Mckinney 2:26:40 PM RT(R) Intra-Procedure 02/01/2019 Beatrice Ro 2:27:11 PM RN Intra-Procedure 02/01/2019 Tez Navarrete 2:27:34 PM Waldemar ORNELAS Signatures Performing Physician : Signature : Tez Macario MD Date : Time : Monitor : Damaris Mckinney Signature : RT Date : Time : Nurse : Beatrice Ro RN Signature : Date : Time : [place] [id number] [place] [address]
[2019-01-29] MEDS ORDERED: LISINOPRIL-HCT1 EAC8 PO (20:08)
[2019-01-29] MEDS ORDERED: ZESTRIL20 MG PO (20:08)
[2019-01-29] MEDS ORDERED: HYDROCODON-ACE1 EA10 PO (20:09)
[2019-01-29] MEDS ORDERED: CELEXA20 MG PO (20:09)
[2019-01-29] MEDS ORDERED: ULTRAM50 MG PO (20:09)
[2019-01-29] MEDS ORDERED: IBUPROFEN600 MG PO (20:10)
[2019-01-29] MEDS ORDERED: NEXIUM40 MG PO (20:10)
[2019-01-29] MEDS ORDERED: LIPITOR80 MG PO (20:10)
[2019-01-29] MEDS ORDERED: BYDUREON P2 MG/0.65 SC (20:11)
[2019-01-29] MEDS ORDERED: XANAX0.5 MG PO (20:11)
[2019-01-29] MEDS ORDERED: GLUCOPHAGE500 MG PO (20:11)
[2019-01-29] MEDS ORDERED: CYMBALTA60 MG PO (20:12)
[2019-01-29 20:33] LABS: BASOPHILS 0.3 % (0-2); HEMATOCRIT 40.3 % (36.0-48.0); HEMOGLOBIN 12.5 g/dL (12-16); IMMATURE GRANULOCYTES 0.2 % (0-5); LYMPHOCYTES 11.1 % (15-50); MCH 28.9 pg (26.0-34.0); MCV 93.1 fL (80.0-100.0); MEAN PLATELET VOLUME 9.3 fL (7.4-10.4); MONOCYTES 6.4 % (2-11); PLATELET COUNT 268 10x3/uL (130-400); RBC 4.33 10x6/uL (4.00-5.40); RDW 14.7 % (11.5-14.5); WBC 10.7 10x3/uL (4.8-10.8)
[2019-01-29 20:38] LABS: APTT 27.6 SECONDS (22.8-39.4); CALC OSMOLALITY 294 mosm/kg (275-300); CALCIUM 9.2 mg/dL (8.5-10.1); CARBON DIOXIDE 30.7 mmol/L (21.0-32.0); CHLORIDE - SERUM 106 mmol/L (98-107); CREATININE - SERUM 1.8 mg/dL (0.6-1.3); GLUCOSE 140 mg/dL (74-106); INR 1.04 (0.85-1.17); POTASSIUM - SERUM 3.8 mmol/L (3.5-5.1); PROTIME 13.1 SECONDS (11.6-15.0); SODIUM 144 mmol/L (136-145); UREA NITROGEN 28 mg/dL (7-18); eGFR NON AFRICAN AMERICAN 31 mL/min (90-120)
[2019-01-29 21:00] LABS: ALBUMIN 2.9 g/dL (3.4-5.0); ALKALINE PHOSPHATASE 136 U/L (46-116); ALT (SGPT) 68 U/L (10-68); BILIRUBIN - TOTAL 0.28 mg/dL (0.2-1.3); CKMB 6.2 U/L (0.0-3.6); CREATINE KINASE 101 UL (21-215); PRO BNP 9092 pg/mL (0-125); PROTEIN - SERUM 6.5 g/dL (6.4-8.2)
[2019-01-29 21:01] LABS: TROPONIN-I 0.084 ng/mL (0.000-0.060)
[2019-01-29] MEDS ORDERED: LISINOPRIL20 MG PO (22:57)
[2019-01-30] VITALS (60 sets, daily range): BP systolic 114–193; BP diastolic 64–118
--- NOTE | 2019-01-30 03:00 | NUR ---
REASSESSMENT PER FLOWSHEET, NO ACUTE CHANGES NOTED AT THIS TIME, WILL CONT TO MONITOR.
[2019-01-30 03:54] LABS: BASOPHILS 0.3 % (0-2); EOSINOPHILS 2.4 % (0-7); HEMATOCRIT 37.7 % (36.0-48.0); HEMOGLOBIN 11.6 g/dL (12-16); IMMATURE GRANULOCYTES 0.3 % (0-5); LYMPHOCYTES 12.8 % (15-50); MCH 28.6 pg (26.0-34.0); MCHC 30.8 g/dL (31.0-37.0); MCV 92.9 fL (80.0-100.0); MEAN PLATELET VOLUME 9.5 fL (7.4-10.4); MONOCYTES 7.3 % (2-11); NEUTROPHILS 76.9 % (40-80); PLATELET COUNT 267 10x3/uL (130-400); RBC 4.06 10x6/uL (4.00-5.40); RDW 14.9 % (11.5-14.5); WBC 11.6 10x3/uL (4.8-10.8)
[2019-01-30 04:24] LABS: ALBUMIN 2.7 g/dL (3.4-5.0); ANION GAP 12.3 mmol/L (8-16); BILIRUBIN - TOTAL 0.34 mg/dL (0.2-1.3); CALCIUM 8.8 mg/dL (8.5-10.1); CARBON DIOXIDE 27.3 mmol/L (21.0-32.0); CREATININE - SERUM 1.6 mg/dL (0.6-1.3); POTASSIUM - SERUM 3.6 mmol/L (3.5-5.1)
[2019-01-30 04:28] LABS: TROPONIN-I 0.094 ng/mL (0.000-0.060)
--- NOTE | 2019-01-30 07:00 | NUR ---
AWAKES TO VERBAL STIMULI SKIN WARM AND DRY. DENIES ANY CHEST PAIN. IV RIGHT HAND WITHOUT REDNESS OR SWELLING INFUSING WITH NTG GTT AT 50 MCG/MIN. MONITOR ST. OXYGEN AT 4 LITERS PER NC.
--- NOTE | 2019-01-30 08:00 | NUR ---
DR. WELSH HERE TALKED WITH FAMILY. BREAKFAST TRAY SERVED SITTING ON SIDE OF BED. UP TO BSC. DOES BECOME SHORT OF BREATH WITH TRANSFERING.
[2019-01-30 08:15] LABS: ANION GAP 21.7 mmol/L (8-16); CALCIUM 9.2 mg/dL (8.5-10.1); CARBON DIOXIDE 21.1 mmol/L (21.0-32.0); CHOL - HDL RATIO 3.4 ratio (2.3-4.1); CREATININE - SERUM 1.9 mg/dL (0.6-1.3); LDL-HDL RATIO 1.7 ratio (1.5-3.5); POTASSIUM - SERUM 3.8 mmol/L (3.5-5.1)
--- NOTE | 2019-01-30 11:00 | NUR ---
UP TO BSC, DOES BECOME SHORT OF BREATH WITH TRANSFERING. SITTING ON SIDE OF BED FOR LUNCH
--- NOTE | 2019-01-30 13:00 | NUR ---
fair appetite. pulse ox drops in to low 80's when patient takes her oxygen off. needs to be reminded to keep oxygen on. water applied to oxygen for humification
--- NOTE | 2019-01-30 14:00 | NUR ---
infomred of side effects of steroids. dayton important to watch her sugar intact, while steroids.
--- NOTE | 2019-01-30 15:04 | NUR ---
complete hibclens bath given with linen change. patient does become short of breath, and had to allow her rest during bath. complete linen change
--- NOTE | 2019-01-30 15:30 | NUR ---
DR. DURAND NOTIFIED OF ELEVATED BLOOD PRESSURE, NEW ORDERS RECEIVED FOR NORVAC
--- NOTE | 2019-01-30 16:30 | NUR ---
UP TO BSC. LESS SHORT OF BREATH, BUT STILL SHORT OF BREATH WITH TRANSFER. SITTING AT SIDE OF BED TO EAT. HERE UPDATE GIVEN. CONSENTS FOR HEART CAHT OBTAINED, QUESTIONS ANSWERS PROCEDURE EXPLAINED TO BOTH.
--- NOTE | 2019-01-30 17:00 | NUR ---
DR. DURAND NOTIFIED OF ELEVATED BLOOD PRESSURE 190'S SYSTOLIC. NEW ORDERS FOR CARDIZEM RECEIVED.
--- NOTE | 2019-01-30 18:36 | NUR ---
PATIENT SLEEPING EYES CLOSED RESP DEEP AND REGULAR. ATE HALF OF SUPER TRAY.
--- NOTE | 2019-01-30 19:15 | NUR ---
RESUMED CARE OF PT, ASSESSMENT PER FLOWSHEET. PT ALERT AND ORIENTED X 4, HR ST ON CM, CARDIZEM GTT INFUSING AT 15 MG/HR VIA RT HAND PIV, DRESSING CDI. PT DENIES PAIN OR ANY NEEDS AT THIS TIME, WILL MONITOR.
--- NOTE | 2019-01-30 21:30 | NUR ---
PT YGXERVAIT-PM-BRF IN FOR VISITATION, ALL QUESTIONS ANSWERED AND UPDATE GIVEN.
--- NOTE | 2019-01-30 23:15 | NUR ---
REASSESSMENT PER FLOWSHEET, NO ACUTE CHANGES NOTED AT THIS TIME, PT DENIES PAIN OR ANY NEEDS AT THIS TIME. CONT POC
[2019-01-31] VITALS (26 sets, daily range): BP systolic 128–167; BP diastolic 65–102; BMI 34.0
--- NOTE | 2019-01-31 03:00 | NUR ---
REASSESSMENT PER FLOWSHEET, NO ACUTE CHANGES NOTED, HR SR ON CM.
[2019-01-31 03:54] LABS: BASOPHILS 0.1 % (0-2); EOSINOPHILS 0 % (0-7); HEMATOCRIT 37.8 % (36.0-48.0); HEMOGLOBIN 11.6 g/dL (12-16); IMMATURE GRANULOCYTES 0.4 % (0-5); LYMPHOCYTES 5.7 % (15-50); MCH 28.4 pg (26.0-34.0); MCHC 30.7 g/dL (31.0-37.0); MCV 92.6 fL (80.0-100.0); MEAN PLATELET VOLUME 9.5 fL (7.4-10.4); MONOCYTES 1.3 % (2-11); NEUTROPHILS 92.5 % (40-80); PLATELET COUNT 262 10x3/uL (130-400); RBC 4.08 10x6/uL (4.00-5.40); RDW 14.8 % (11.5-14.5)
[2019-01-31 04:17] LABS: ANION GAP 10.4 mmol/L (8-16); CREATININE - SERUM 1.6 mg/dL (0.6-1.3); POTASSIUM - SERUM 3.8 mmol/L (3.5-5.1)
[2019-01-31 04:18] LABS: WBC 8.3 10x3/uL (4.8-10.8)
[2019-01-31 04:21] LABS: CARBON DIOXIDE 29.4 mmol/L (21.0-32.0)
--- NOTE | 2019-01-31 05:13 | NUR ---
AM LABS REVIEWED, NOTHING TO TREAT PER ELECTROLYTE PROTOCOL.
--- NOTE | 2019-01-31 07:00 | NUR ---
PT RESTING IN BED WATCHING TV. VSS AND WNL. CALL LIGHT WITHIN REACH. DENIES ANY NEEDS AT THIS TIME, WILL CONT TO FOLLOW POC
--- NOTE | 2019-01-31 07:27 | NUR ---
DR WELSH NOTIFIED OF PT CREATININE ON AM LAB.
--- NOTE | 2019-01-31 08:28 | NUR ---
AUTOMOTIVE PARTS SPECIALIST CALLED TO PREOP PT. PT PREOP ORDERED
--- NOTE | 2019-01-31 09:30 | NUR ---
PT RESTING IN BED, VSS AND WNL. FAMILY AT BEDSIDE, AWAITING HEART CATH AT THIS TIME, WILL CONT TO FOLLOW POC
--- NOTE | 2019-01-31 10:33 | NUR ---
PT LEFT FOR HEART CATH
[2019-01-31 10:44] LABS: CHOL - HDL RATIO 3.5 ratio (2.3-4.1); LDL-HDL RATIO 2.3 ratio (1.5-3.5)
--- NOTE | 2019-01-31 12:10 | NUR ---
PT RETURNED FROM HEART CATH. DRESSING TO RIGHT GROIN C/D/I. NO SIGNS OF HEMATOMA FORMATION NOTED AT THIS TIME, DISTAL PULSES PRESENT. VSS AND WNL. PT ALERT AND TALKING. DENIES ANY NEEDS AT THIS TIME, WILL CONT TO FOLLOW POC
--- NOTE | 2019-01-31 12:30 | NUR ---
PT RESTING IN BED, VSS AND WNL. FAMILY AT BEDSIDE. DRESSING TO RIGHT GROIN C/D/I, DISTAL PULSES PRESENT. NO SIGNS OF HEMATOMA FORMATION NOTED AT THIS TIME. DENIES ANY NEEDS AT THIS TIME, WILL CONT TO FOLLOW POC
--- NOTE | 2019-01-31 12:45 | NUR ---
PT RESTING IN BED, VSS AND WNL. DRESSING TO RIGHT GROIN C/D/I, NO SIGNS OF HEMATOMA FORMATION NOTED AT THIS TIME, DISTAL PULSES PRESENT, DENIES ANY NEEDS AT THIS TIME, WILL CONT TO FOLLOW POC
--- NOTE | 2019-01-31 13:00 | NUR ---
PT RESTING IN BED, FAMILY AT BEDSIDE. VSS AND WNL. DRESSING TO RIGHT GROIN C/D/I, NO SIGNS OF HEMATOMA FORMATION NOTED AT THIS TIME, DISTAL PULSES PRESENT. WILL CONT TO FOLLOW POC
--- NOTE | 2019-01-31 13:21 | NUR ---
HERE TO DISCUSS PROCEDURE WITH PT. PT BP ELEVATED. PER , WATCH BP FOR AN HR AND IF IT INCREASES, NOTIFY HIM
--- NOTE | 2019-01-31 13:30 | NUR ---
PT RESTING IN BED, FAMILY AT BEDSIDE. VSS AND WNL. DRESSING TO RIGHT GROIN C/D/I, NO SIGNS OF HEMATOMA FORMATION NOTED AT THIS TIME. DISTAL PULSES PRESENT. DENIES ANY FURTHER NEEDS AT THIS TIME, WILL CONT TO FOLLOW POC
--- NOTE | 2019-01-31 14:00 | NUR ---
PT RESTING IN BED, VSS AND WNL. DRESSING TO RIGHT GROIN C/D/I, NO SIGNS OF HEMATOMA FORMATION NOTED AT THIS TIME, DISTAL PULSES PRESENT. WILL CONT TO FOLLOW POC
--- NOTE | 2019-01-31 14:30 | NUR ---
PT RESTING IN BED, VSS AND WNL. DRESSING TO RIGHT GROIN C/D/I, NO SIGNS OF HEMATOMA FORMATION NOTED AT THIS TIME, WILL CONT TO FOLLOW POC
--- NOTE | 2019-01-31 14:56 | NUR ---
PT IS TEARFUL AND ASKING FOR HER XANAX. SPOKE TO ABOUT RESTARTING PT CYMBALTA AND PRN XANAX. NEW ORDER RECIEVED TO RESTART THESE MEDICATIONS.
[2019-01-31 15:01] LABS: APPEARANCE CLEAR (CLEAR); BILIRUBIN NEGATIVE (NEGATIVE); COLOR YELLOW (YELLOW); GLUCOSE NEGATIVE (NEGATIVE); KETONE NEGATIVE (NEGATIVE); NITRITE NEGATIVE (NEGATIVE); PROTEIN 1+ mg/dL (NEGATIVE); SPECIFIC GRAVITY 1.015 (1.005-1.020); UROBILINOGEN NORMAL (NORMAL)
--- NOTE | 2019-01-31 15:02 | NUR ---
PT RESTING IN BED, VSS AND WNL. DRESSING TO RIGHT GROIN C/D/I, NO SIGNS OF HEMATOMA FORMATION NOTED. DISTAL PULSES PRESENT. WILL CONT TO FOLLOW POC
--- NOTE | 2019-01-31 16:23 | NUR ---
PT RESTING IN BED, VSS AND WNL. DENIES ANY NEEDS AT THIS TIME, CALL LIGHT WITHIN REACH, WILL CONT TO FOLLOW POC
--- NOTE | 2019-01-31 17:44 | NUR ---
ASSISTED PT TO BEDSIDE COMMODE AND BACK TO BED. DENIES ANY NEEDS AT THIS TIME, CALL LIGHT WITHIN REACH, VSS AND WNL. WILL CONT TO FOLLOW POC
--- NOTE | 2019-01-31 19:25 | NUR ---
Received patient resting in bed with eyes open, assessment completed per flowsheet. Patient AO x4, answers appropriately/follows instructions. S1/S2 noted Sinus Tach on telemetry, rythmic and regular. Breathing is even/unlabored on 4L via HFNC with O2 sat 94%, lung sounds clear bilateral upper and mid with diminished lower. Abdomen is soft/round with bowel sounds active x4, non-tender. R groin cath site dressing CDI, soft to palpation with no bleeding/bruising noted. All pulses palpable with cap refill < 3 sec, skin warm/dry. Denies needs at this time, see flowsheet for details. All VSS and will continue to monitor.
--- NOTE | 2019-01-31 21:00 | NUR ---
Patient resting in bed with eyes open and family at bedside, discussed current status with all questions answered to satisfaction. Patient ambulated self to bedside commode, 350ml clear yellow urine noted. Denies pain or other needs at this time, all VSS and will continue to monitor.
--- NOTE | 2019-01-31 23:20 | NUR ---
Reassessment completed per flowsheet, no changes noted from previous assessment. S1/S2 noted Sinus Tach on telemetry, rythmic and regular. Breathing is shallow on 4L via HFNC with O2 sat 97%, lung sounds clear bilateral upper and mid with diminished lower. R groin cath site dressing CDI, no bleeding/bruising noted. All pulses palpable with cap refill < 3 sec, skin warm/dry. Denies pain or other needs at this time, see flowsheet for details. All VSS and will continue to monitor.
[2019-02-01] VITALS (29 sets, daily range): BP systolic 111–165; BP diastolic 65–96
--- NOTE | 2019-02-01 01:00 | NUR ---
Patient sleeping in bed with eyes closed on CPAP 35% with O2 sat 97%, no s/s of distress at this time. No further needs and will continue to monitor.
--- NOTE | 2019-02-01 03:10 | NUR ---
Reassessment completed per flowsheet, no changes noted from previous assessment. S1/S2 noted NSR on telemetry, rythmic and regular. Breathing is shallow on CPAP 35% with O2 sat 97%, lung sounds clear bilateral upper and mid with diminished lower. R groin cath site dressing CDI, soft to palpation with no bleeding/drainage noted. All pulses palpable with cap refill < 3 sec, skin warm/dry. Denies pain or other needs at this time, see flowsheet for details. All VSS and will continue to monitor.
[2019-02-01 04:40] LABS: ANION GAP 11.2 mmol/L (8-16); CALCIUM 8.6 mg/dL (8.5-10.1); CREATININE - SERUM 1.7 mg/dL (0.6-1.3); POTASSIUM - SERUM 4.2 mmol/L (3.5-5.1)
[2019-02-01 04:43] LABS: BASOPHILS 0 % (0-2); EOSINOPHILS 0 % (0-7); HEMATOCRIT 35.8 % (36.0-48.0); HEMOGLOBIN 10.7 g/dL (12-16); IMMATURE GRANULOCYTES 0.3 % (0-5); LYMPHOCYTES 4.3 % (15-50); MCH 28.1 pg (26.0-34.0); MCHC 29.9 g/dL (31.0-37.0); MEAN PLATELET VOLUME 9.6 fL (7.4-10.4); MONOCYTES 2.4 % (2-11); PLATELET COUNT 297 10x3/uL (130-400); RBC 3.81 10x6/uL (4.00-5.40); RDW 15.2 % (11.5-14.5)
[2019-02-01 04:50] LABS: WBC 14.9 10x3/uL (4.8-10.8)
--- NOTE | 2019-02-01 07:00 | NUR ---
BEDSIDE REPORT RECEIVED. SHIFT ASSESSMENT COMPLETED PER FLOWSHEET, SEE FLOWSHEET FOR INFOMATION. VSS. PT C/O OF NOT KNOWING WHAT TIME SHE IS GOING TO GANTRY RIGGER, CALLED SURGERY AND GANTRY RIGGER NO ANSWER. WILL CONT TO MONITOR. VSS. NO DISTRESS NOTED AT THIS TIME.
--- NOTE | 2019-02-01 08:33 | NUR ---
CALLED HAND PROFILER TO SEE WHAT TIME PT WILL BE GOING BACK TO HAND PROFILER, INFORMED PT THAT TIME WOULD BE AROUND 1300. ALSO ASKED IF PT COULD HAVE ONE SPRITE AND WAS TOLD THAT IS OKAY. GAVE PT ONE SPRITE. NO NEEDS OR DISTRESS NOTED AT THIS TIME. VSS. WILL CONT TO MONITOR.
--- NOTE | 2019-02-01 09:00 | NUR ---
ANSWERED PT CALL LIGHT, EMPTIED BSC. NO NEEDS OR DISTRESS NOTED AT THIS TIME. VSS. WILL CONT TO YONI.
--- NOTE | 2019-02-01 10:23 | NUR ---
PT FAMILY AT BEDSIDE, FAMILY UPDATED. WILL CONT TO MONITOR.
--- NOTE | 2019-02-01 11:00 | NUR ---
CHG BEDBATH AND COMPLETE BED LINEN CHANGED. VSS. WILL CONT TO MONITOR. REASSESSMENT COMPLETED PER FLOWSHEET, SEE FLOWSHEET FOR INFORMATION.
--- NOTE | 2019-02-01 13:00 | NUR ---
PT FAMILY AT BEDSIDE, FAMILY UPDATED. VSS. WILL CONT TO MONITOR.
--- NOTE | 2019-02-01 13:26 | NUR ---
PT TAKEN TO SHOT TUBE MACHINE TENDER VIA STRETCHER ACCOMPANIED BY STAFF. WILL CONT TO MONITOR.
--- NOTE | 2019-02-01 14:26 | NUR ---
DR.ST VAZQUEZ UPDATED FAMILY. STAB SETTER AND DRILLER CALLED AND GAVE REPORT ON PT. WILL CONT TO MONITOR.
--- NOTE | 2019-02-01 14:50 | NUR ---
RECEIVED PT TO ROOM VIA STRETCHER ACCOMPANIED BY STAFF. WILL CONT TO MONITOR.
--- NOTE | 2019-02-01 15:00 | NUR ---
PT C/O DRY MOUTH AND SORE THROAT, REQUESTED SODA AND ICE. GAVE PT SPRITE WITH ICE, NO NEEDS OR DISTRESS NOTED AT THIS TIME. VSS. WILL CONT TO MONITOR.
--- NOTE | 2019-02-01 17:00 | NUR ---
PT RETING IN BED WITH EYES CLOSED. VSS. WILL CONT TO MONITOR. NO NEEDS OR DISTRESS NOTED AT THIS TIME.
--- NOTE | 2019-02-01 19:00 | NUR ---
PT AOX4. SHALLOW RESPIRATIONS, 4L O2 VIA NC, SPO2 95. LUNG SOUNDS CLEAR/DIMINISHED. S1S2 HEARD, PERIPHERAL PULSES PRESENT. BILATERAL GROIN INCISION SITES WITH DRESSINGS CDI. BOWEL SOUNDS ACTIVE IN ALL QUADRANTS. PT REQUESTS TO SIT UP, ORDERED 4HRS FLAT HAS BEEN COMPLETED. PT HOB RAISED FOR COMFORT. NO S/S OF HEMATOMA AT THIS TIME TO RT GROIN. PT STATES SHE IS COMFORTABLE AT THIS TIME. CALL LIGHT AND BEDSIDE TABLE WITHIN PT REACH. CPOC.
--- NOTE | 2019-02-01 20:18 | NUR ---
FAMILY AT BEDSIDE, UPDATE PROVIDED AND QUESTIONS ANSWERED. RT GROIN WITH DRSG CDI, NO S/S OF HEMATOMA NOTED AT THIS TIME. HS MEDS GIVEN, FRESH WATER PROVIDED. SANDWICH TRAY PROVIDED UPON REQUEST. PT DENIES FURTHER NEEDS AT THIS TIME. CALL LIGHT AND BEDSIDE TABLE WITHIN PT REACH. CPOC.
--- NOTE | 2019-02-01 21:36 | NUR ---
PT C/O BURNING PAIN TO RT LEG, SWELLING/TIGHTNESS/BRUISING NOTED UPON ASSESSMENT TO RT THIGH. INCISION SITE AT RT GROIN WITH DRESSING INTACT. MANUAL PRESSURE HELD AND THEN FEMSTOP APPLIED. CARIOLOGY PAGED FOR FURTHER ORDERS. BP 155/88, HR 90.
--- NOTE | 2019-02-01 21:52 | NUR ---
SECOND PAGE TO E[facility]
--- NOTE | 2019-02-01 22:07 | NUR ---
REC'D CALLBACK FROM [facility], ORDERS TO KEEP FEMSTOP IN PLACE X2HRS.
--- NOTE | 2019-02-01 23:00 | NUR ---
REASSESSMENT COMPLETE, SEE FLOWSHEET FOR ALL FINDINGS. LT THIGH REMAINS SWOLLEN AND FIRM. FEMSTOP IN PLACE, PT STATES NO LEG PAIN AT THIS TIME. CALL LIGHT WITHIN PT REACH. CPOC.
[2019-02-02] VITALS (52 sets, daily range): BP systolic 101–167; BP diastolic 60–111; Ht 149.9 cm; Wt 89.7 kg
--- NOTE | 2019-02-02 00:23 | MORECARE ---
CASE MANAGEMENT DISCHARGE SUMMARY PATIENT: ZEN HEAD UNIT: [id number] ADM DATE: 01/29/19 AGE: 58 : 60 SEX: F ROOM/BED: D.2305 AUTHOR: FLORES PERRY PHYSICIAN: REFERRING PHYSICIAN: KAYLEN DURAND MD DATE OF SERVICE: 02/02/19 Discharge Plan Patient Name: ZEN HEAD [facility] : 1960 Planned Disposition: Anticipated Discharge Date: Discharge Date: Expected LOS: Initial Reviewer: [email or web address] Initial Review Date: 01/31/2019 Generated: 02/02/19 1:23 am DCPIA - Discharge Planning Initial Assessment Updated by [email or web address]: Adela Fitch on 02/02/19 12:20 am * Is the patient Alert and Oriented? Yes * How many steps to enter\exit or inside your home? * PCP NAIDA PRYOR * Pharmacy [facility] * Preadmission Environment Home with Family * ADLs Independent * Equipment None * List name and contact numbers for known caregivers / representatives who currently or will assist patient after discharge: MICHAEL HEAD - SPOUSE - [phone] * Verbal permission to speak to the caregivers and representatives has been obtained from the patient. Yes * Community resources currently utilized None * Additional services required to return to the preadmission environment? No * Can the patient safely return to the preadmission environment? Yes * Has this patient been hospitalized within the prior 30 days at any hospital? No Patient Name: ZEN HEAD Page [phone] at 0023 All edits/amendments must be made on the electronic document DICTATION DATE: 02/02/1922 INDUSTRIAL PIPEFITTER JOURNEYMAN: CHLOE 02/02/1922 RPT#: [id number] DC DATE: STATUS: ADM IN [facility] [address] [place] [address] END OF REPORT
--- NOTE | 2019-02-02 00:30 | MORECARE ---
CASE MANAGEMENT DISCHARGE SUMMARY PATIENT: ZEN HEAD UNIT: [id number] ADM DATE: 01/29/19 AGE: 58 : 60 SEX: F ROOM/BED: D.2305 AUTHOR: ORLANDO,DOC PHYSICIAN: REFERRING PHYSICIAN: KAYLEN DURAND MD DATE OF SERVICE: 02/02/19 Discharge Plan Patient Name: ZEN HEAD Facility: [facility]:[place] : 1960 Planned Disposition: Anticipated Discharge Date: Discharge Date: Expected LOS: Initial Reviewer: [email or web address] Initial Review Date: 01/31/2019 Generated: 02/02/19 1:29 am Comments DCP- Discharge Planning Updated by [email or web address]: Adela Fitch on 02/01/19 11:[address] LATE ENTRY D/C IMM SIGNED 02/01/19 @ 1610. DENIES ANY D/C NEEDS DCP- Discharge Planning Updated by [email or web address]: Adela Fitch on 02/01/19 11:[address] LATE ENTRY 02/01/19 Patient Name: ZEN HEAD Admission Status: ER Accout number: [id number] Admission Date: 01-29-2019 : 1960 Admission Diagnosis: Attending: KAYLEN DURAND Current LOS: 4 Anticipated DC Date: Planned Disposition: Primary Insurance: [facility] [employer] Discharge Planning Comments: CM met with patient to complete initial dc planning assessment. CM educated patient on the CM role and verbal consent given by patient to complete assessment. Patient lives at home with her where she is independent with her care. At discharge patient plans to return home and feels this is a safe discharge. CM discussed availability of home health, rehab services, and medical equipment. Her will drive her home. Patient denied known discharge needs at this time. CM will continue to follow and will assist as needed with dc plans/needs. Hospice Case Manager: Adela Fitch DCPIA - Discharge Planning Initial Assessment Updated by [email or web address]: Adela Fitch on 02/02/19 12:20 am * Is the patient Alert and Oriented? Yes * How many steps to enter\exit or inside your home? * PCP NAIDA PRYOR * Pharmacy [facility] * Preadmission Environment Home with Family * ADLs Independent * Equipment None * List name and contact numbers for known caregivers / representatives who currently or will assist patient after discharge: MICHAEL HEAD - SPOUSE - [phone] * Verbal permission to speak to the caregivers and representatives has been obtained from the patient. Yes * Community resources currently utilized None * Additional services required to return to the preadmission environment? No * Can the patient safely return to the preadmission environment? Yes * Has this patient been hospitalized within the prior 30 days at any hospital? No Coverage Notice Reviewer: [email or web address] Aakash Fitch Notice Issued Date-Time: 02/01/2019 16:10 Notice Type: IM Discharge Notice Notice Delivered To: Family Member Relationship to Patient: Spouse Sheet Manufacturing Supervisor Name: micahel head Delivery Method: HAND - Hand Delivered Nuha Days: Prior Verbal Notification: Recipient Understood Notice: Yes Recipient Signature: Yes Med Rec Note Co-signed by Attending: Coverage Notice Comment: Last DP export: 02/01/19 11:23 Patient Name: ZEN HEAD Page [phone] at 0030 All edits/amendments must be made on the electronic document DICTATION DATE: 02/02/1928 MANAGER FRONT OFFICE: CHLOE 02/02/1928 RPT#: [id number] DC DATE: STATUS: ADM IN [facility] [address] [place] [address] END OF REPORT
[2019-02-02 01:59] LABS: HEMATOCRIT 21.4 % (36.0-48.0); HEMOGLOBIN 6.5 g/dL (12-16)
--- NOTE | 2019-02-02 02:11 | NUR ---
PT LT THIGH BECOMING MORE FIRM, H&H RESULTS REC'D, HEMOGLOBIN CRITICAL LOW- 6.5, BP 135/89. TAUTH PAGED.
--- NOTE | 2019-02-02 02:13 | NUR ---
REC'D CALLBACK FROM [facility], ORDERS FOR 2 UNITS PRBC AND FOR FEMSTOP TO BE PLACED AGAIN FOR ATLEAST 2 HRS. WILL RECHECK H&H UPON COMPLETION OF PRBC PER ORDERS.
--- NOTE | 2019-02-02 03:47 | NUR ---
1st unit of PRBC's started via R hand IV. Nurse in room with PT, and PT is tolerating well.
[2019-02-02 04:13] LABS: HEMATOCRIT 20.2 % (36.0-48.0); MCH 28.8 pg (26.0-34.0); MCHC 31.2 g/dL (31.0-37.0); MCV 92.2 fL (80.0-100.0); MEAN PLATELET VOLUME 9.4 fL (7.4-10.4); PLATELET COUNT 393 10x3/uL (130-400); RBC 2.19 10x6/uL (4.00-5.40); RDW 14.9 % (11.5-14.5); WBC 22.7 10x3/uL (4.8-10.8)
[2019-02-02 04:14] LABS: HEMOGLOBIN 6.3 g/dL (12-16)
[2019-02-02 04:19] LABS: ANION GAP 11.8 mmol/L (8-16); CARBON DIOXIDE 24.6 mmol/L (21.0-32.0); CREATININE - SERUM 1.9 mg/dL (0.6-1.3); POTASSIUM - SERUM 4.4 mmol/L (3.5-5.1)
--- NOTE | 2019-02-02 04:59 | NUR ---
ANITA HUN NOTIFIED OF PT NAUSEA, ZOFRAN PRN ORDERED, SEE MAR.
[2019-02-02 05:22] LABS: LYMPHOCYTES 8 % (15-50); NEUTROPHILS 92 % (40-80); PLATELET ESTIMATE NORMAL
--- NOTE | 2019-02-02 06:22 | NUR ---
SECOND UNIT OF PRBCS STARTED, NO S/S OF REACTION AT THIS TIME.
--- NOTE | 2019-02-02 07:21 | NUR ---
SPOKE WITH DR CHAVEZ. CTA OF LEFT EXTREMITY WAS ORDERED.
--- NOTE | 2019-02-02 07:30 | NUR ---
patient stated she had chronic back pain. also was told in report she had chronic back pain and takes hydro for it.
--- NOTE | 2019-02-02 07:35 | NUR ---
CALLED AND GIVEN AN UPDATE, QUESTIONS ANSWERED.
--- NOTE | 2019-02-02 07:41 | NUR ---
2nd unit was infusing during shift change. fem stop on patient. lying flat. alert and oriented.
--- NOTE | 2019-02-02 09:05 | NUR ---
Nutrition follow-up: Diet: Consistent CHO with po intake ~75% average of meals Pt now NPO for procedure; large hematoma Labs reviewed; glucose elevated Wt: 179# RDN following.
--- NOTE | 2019-02-02 09:11 | NUR ---
dr patel called and stated he spoke with dr wilder about patient.
--- NOTE | 2019-02-02 09:29 | NUR ---
pathology lab technician called jose maravilla rn.
--- NOTE | 2019-02-02 09:30 | NUR ---
2nd unit of blood complete at this time. flushing out with normal saline.
--- NOTE | 2019-02-02 09:40 | NUR ---
dr wilder at bedside.
--- NOTE | 2019-02-02 09:50 | NUR ---
dr wilder stated patient will be going or OR. 2 units have been infused. have kept patient NPO per possibility of surgery today.
--- NOTE | 2019-02-02 10:38 | NUR ---
PATIENT TAKEN TO SURGERY. NO CALL TO GIVE PREOP MEDS
--- NOTE | 2019-02-02 10:39 | NUR ---
PATIENT WHEELED BY OR STAFF. ANESTHESIA, CVL, A LINE, SURGERY CONSENT IN CHART. SIGNED AND WITNESSED.
--- NOTE | 2019-02-02 10:41 | NUR ---
last vital signs before patient was wheeled out 97% spo2, 158/84, hr 101
--- NOTE | 2019-02-02 11:15 | NUR ---
PATIENT WILL BE TAKEN TO CVICU AFTER SURGERY
--- NOTE | 2019-02-02 12:42 | NUR ---
PT RECEIVED FROM OR. VSS. FAMILY AT BEDSIDE GIVEN UDPATE
[2019-02-02 13:26] LABS: BASOPHILS 0.1 % (0-2); EOSINOPHILS 0 % (0-7); IMMATURE GRANULOCYTES 0.5 % (0-5); LYMPHOCYTES 4.6 % (15-50); MCHC 33.2 g/dL (31.0-37.0); MEAN PLATELET VOLUME 9.3 fL (7.4-10.4); MONOCYTES 11.1 % (2-11); NEUTROPHILS 83.7 % (40-80); RDW 14.5 % (11.5-14.5); WBC 19.8 10x3/uL (4.8-10.8)
[2019-02-02 13:36] LABS: INR 1.39 (0.85-1.17); PROTIME 16.5 SECONDS (11.6-15.0)
[2019-02-02 13:37] LABS: APTT 51.3 SECONDS (22.8-39.4); CREATININE - SERUM 1.7 mg/dL (0.6-1.3)
[2019-02-02 13:44] LABS: HEMATOCRIT 30.7 % (36.0-48.0); HEMOGLOBIN 10.2 g/dL (12-16); MCV 87.2 fL (80.0-100.0); PLATELET COUNT 221 10x3/uL (130-400); RBC 3.52 10x6/uL (4.00-5.40)
[2019-02-02 13:54] LABS: ANION GAP 16.7 mmol/L (8-16); POTASSIUM - SERUM 3.7 mmol/L (3.5-5.1)
[2019-02-02 13:55] LABS: CALCIUM 6.7 mg/dL (8.5-10.1)
--- NOTE | 2019-02-02 15:20 | NUR ---
REASSESSMENT COMPLETE PER FLOW SHEET. VSS. NO NEW CHANGES L PEDAL PULSE PALP WEAK FOUND WITH DOPPLER. L GROIN DRSG CDI L ASHELY DRAIN PATENT LARGE HEMATOMA AND BRUISING NOTED.
--- NOTE | 2019-02-02 16:42 | NUR ---
L PEDAL PULSE PATENT VIA DOPPLER. NO CHANGES TO L GROIN DRSG SITE.
--- NOTE | 2019-02-02 16:43 | NUR ---
DR GARLAND PAGED BRITTANY CONSULT.
--- NOTE | 2019-02-02 17:00 | NUR ---
DR BRANCH AT BEDSIDE NEW ORDERS RECEIVED. WILL ADM
--- NOTE | 2019-02-02 20:15 | NUR ---
FAMILY AT BEDSIDE, UPDATE PROVIDED AND QUESTIONS ANSWERED. PERIPHERAL PULSES PRESENT. NO CHANGE NOTED TO LT GROIN/THIGH, ASHELY DRAIN COMPRESSED WITH BLOODY DRAINAGE PRESENT. PT URINATED AROUND AL CATH, SATURATED PAD, PARTIAL LINEN CHANGE AND BATH PROVIDED. NO C/O PAIN AT THIS TIME. TOLERATING ICE CHIPS AND SIPS OF WATER. DENIES NEEDS. CALL LIGHT AND BEDSIDE TABLE WITHIN PT REACH.
--- NOTE | 2019-02-02 20:20 | NUR ---
TAMEKA AT BEDSIDE, UPDATE PROVIDED. AWARE OF PT UOP AND THAT SHE IS URINATING AROUND CATHETER, ORDERS TO KEEP AL IN DUE TO EDEMA AND TO ATTEMPT USING PUREWICK. ORDERS FOR ULTRASOUND IN AM.
--- NOTE | 2019-02-02 23:30 | NUR ---
REASSESMENT COMPLETE, SEE FLOWSHEET. PT REPOSITIONED FOR COMFORT. PERIPHERAL PULSES PRESENT. LT GROIN/LT THIGH WITH NO INCREASE IN SWELLING OR FIRMNESS, NO C/O PAIN TO LT LEG. LT THIGH ASHELY DRAIN COMPRESSED AND DRAINING BLLODY DRAINAGE.
[2019-02-03] VITALS (82 sets, daily range): BP systolic 103–149; BP diastolic 51–87
--- NOTE | 2019-02-03 03:30 | NUR ---
REASSESEMENT COMPLETE, NO NEW CHANGES AT THIS TIME. LT THIGH/GROIN REMAINS THE SAME. PERIPHERAL PULSES PRESENT. PT REPOSITIONED FOR COMFORT. SEE IV DRIP FLOWSHEET FOR TITRATIONS. CPOC.
--- NOTE | 2019-02-03 05:00 | NUR ---
COMPLETE CHG BATH AND LINEN CHANGE PROVIDED. L GROIN AND LURDES DRSG'S NOT INTACT, DRAINAGE PRESENT, BOTH DRSGS CHANGED. TRESA CARE PROVIDED. ORAL CARE PROVIDED. PT DENIES FURTHER NEEDS AT THIS TIME. FAMILY AT BEDSIDE. CALL LIGHT WITHIN PT REACH. CPOC.
[2019-02-03 05:27] LABS: BASOPHILS 0.1 % (0-2); EOSINOPHILS 0 % (0-7); HEMATOCRIT 27.7 % (36.0-48.0); HEMOGLOBIN 9.5 g/dL (12-16); IMMATURE GRANULOCYTES 0.2 % (0-5); LYMPHOCYTES 4.9 % (15-50); MCH 29.1 pg (26.0-34.0); MCHC 34.3 g/dL (31.0-37.0); MEAN PLATELET VOLUME 9.4 fL (7.4-10.4); NEUTROPHILS 86.8 % (40-80); PLATELET COUNT 203 10x3/uL (130-400); RBC 3.26 10x6/uL (4.00-5.40); RDW 14.7 % (11.5-14.5); WBC 17.3 10x3/uL (4.8-10.8)
[2019-02-03 05:55] LABS: ANION GAP 13.8 mmol/L (8-16); CALCIUM 7.6 mg/dL (8.5-10.1); CARBON DIOXIDE 22.8 mmol/L (21.0-32.0); MAGNESIUM - SERUM 1.7 mg/dL (1.8-2.4); PHOSPHOROUS 6.2 mg/dL (2.5-4.9)
[2019-02-03 05:58] LABS: POTASSIUM - SERUM 4.6 mmol/L (3.5-5.1)
--- NOTE | 2019-02-03 07:00 | NUR ---
RECEIVED BEDSIDE REPORT ON PATIENT AND ASSUMED CARE. PATIENT ALERT AND ORIENTED X 4, ON O2 AT 5 LPM VIA NC. SPO2 - 91%. HR - 112 ST ON CM. BBS - CLEAR DIMINISHED IN THE BASES. ART LINE AND CVP LEVELED AND ZEROED. VSS. RIGHT IJ CVL WITH BLOOD NOTED TO DRESSING, CHANGED LAST NIGHT AND CONTINUES TO OOZE. LEFT ART LINE. 20 GA IV TO RIGHT HAND NSL. PATIENT WITH POSTIVE +2 PEDAL PULSE TO RIGHT FOOT AND +1 TO LEFT FOOT. HEMATOMA NOTED TO LEFT GROIN WITH LURDES DRAIN. AL CATH IN PLACE WITH SOFT WICK ALSO IN PLACE, PATIENT LEAKING URINE AROUND CATHETER DUE TO SWELLING TO LEFT GROIN. DRESSING TO LEFT GROIN WITH SOME BLOODY DRAINAGE NOTED. PATIENT C/O PAIN 8/10 TO BACK. HEAD TO TOE ASSESSMENT COMPLETED.
--- NOTE | 2019-02-03 07:44 | NUR ---
DR. BRANCH AT ROOM UPDATED, OK TO DANGLE PATIENT AND IF DOES OK CAN GET UP TO CHAIR.
--- NOTE | 2019-02-03 09:23 | NUR ---
CVL DRESSING CHANGED WITH SURGICELL APPLIED DUE TO CONTINUOUS OOZING OF BLOOD, DANGELED ON SIDE OF BED, TOLERATED WELL UP TO BEDSIDE CHAIR. VSS. PATIENT VOIDED APPROXIMATELY 75 CC OF NATAN URINE, WITH SUREWICK, DID LEAK A MODERATE AMOUNT TO BED PAD, NONE DRAINED INTO AL.
--- NOTE | 2019-02-03 09:29 | NUR ---
TOBIAS MEDINA WITH RENAL AT ROOM, EXAMINES PATIENT AND SPEAKS WITH PATIENTS , ANSWERS QUSTIONS.
--- NOTE | 2019-02-03 10:00 | NUR ---
IV 20 GA TO RIGHT HAND D/C. DIRECT PRESSURE HELD AND 2X2 AND TAPE APPLIED. PATIENT SITTING UP IN BEDSIDE CHAIR. VSS.
--- NOTE | 2019-02-03 10:50 | NUR ---
DR. CORREA AT ROOM TO DECREASE NS GTT TO 70 CC/HR.
--- NOTE | 2019-02-03 11:00 | NUR ---
REASSESSMENT COMPLETE, VSS. SITTING IN BEDSIDE CHAIR, NC EXCHANGED FOR HIGH FLOW NC AT 6 LPM VIA RT. SPO2 - 96%. CVP AND ART LINE LEVELED AND ZEROED.
--- NOTE | 2019-02-03 11:45 | OP ---
PATIENT NAME: ZEN HEAD MEDICAL RECORD: [id number] :60 LOCATION:C[facility] [id number] ADMISSION DATE:01/29/19 SURGEON: ALEXIS CHAVEZ MD DATE OF OPERATION: 02/01/2019 PROCEDURE: PTCA stent report to the right coronary artery. DESCRIPTION OF PROCEDURE: After a 6-Italian sheath placed in the left femoral artery, actually a JR guiding catheter provided fair guide catheter support to the right coronary being very anteriorly located. We were able to wire across the 90% stenosed mid vessel and 80% stenosed distal vessel. This was followed by 300 cm wire placed across both stenoses. A 2.5 x 15 mm [place] drug-eluting stent was inflated up to 14 atmospheres for 45 seconds. The wound from the stent itself was taken down to the takeoff of the PD and right before, the bifurcation was inflated up to 8 atmospheres, shows excellent resolution of 80% stenosis before the takeoff of the PD gets actual stent deployment at the mid portion of vessel. NIRMALA flow was throughout the procedure. Heparin was used during the case. Sheath was closed with ExoSeal device. Plavix was loaded in the lab. TRANSINT:[id number] Voice Confirmation ID: [id number] DOCUMENT ID: [id number] ALEXIS CHAVEZ MD at 1145 CC: [id number] DICTATION DATE: 02/01/19 1419 RADIO FREQUENCY ENGINEER: 02/01/19 1712 ADM IN [place] [id number] [place] [address]
--- NOTE | 2019-02-03 12:55 | OP ---
PATIENT NAME: ZEN HEAD MEDICAL RECORD: [id number] :60 LOCATION:D.CVI D.CV05 ADMISSION DATE:01/29/19 SURGEON: NICKIE BRANCH MD DATE OF OPERATION: 02/02/2019 SURGEON: Nickie Branch MD DERRICK BOAT CAPTAIN: None. PROCEDURES: 1. Emergent repair, left femoral pseudoaneurysm. 2. Evacuation of left thigh hematoma. PREOPERATIVE DIAGNOSIS: Left femoral pseudoaneurysm following cardiac catheterization. POSTOPERATIVE DIAGNOSES: Left femoral pseudoaneurysm following cardiac catheterization, plus hematoma. ANESTHESIA: General endotracheal anesthesia. ESTIMATED BLOOD LOSS: 100 cc. COMPLICATIONS: None. SPECIMENS: None. CONDITION: Critical. DISPOSITION: ICU. OPERATIVE FINDINGS: 1. Large clotted hematoma about 500 cc. 2. Direct puncture in the mid common femoral artery, anterior wall, with no disease of the femoral artery and no apparent complication of the puncture site. Primary repair. OPERATIVE INDICATION: Pseudoaneurysm and large hematoma. PROCEDURE IN DETAIL: The patient was brought emergently to the operating suite, prepped and draped. A vertical incision was made over the groin, taken down through subcutaneous tissue and the hematoma was entered and drained. Direct pressure was held on the femoral artery, and the femoral artery was dissected out superior and inferior to the puncture site. Primary repair was performed. An additional 6-0 was placed. Thorough irrigation was undertaken. Hematoma was removed. A drain was placed. The wound was closed in 3 layers including the skin clips, and the patient was taken to the ICU. TRANSINT:[id number] Voice Confirmation ID: [id number] DOCUMENT ID: [id number] OPERATIVE REPORT [id number] ZEN HEAD NICKIE BRANCH MD at 1255 CC: ALEXIS CHAVEZ MD [id number] DICTATION DATE: 02/02/19 1440 MEDIA SERVICES SPECIALIST: 02/02/19 7123 ADM IN [place] [id number] [place] [address]
--- NOTE | 2019-02-03 14:09 | NUR ---
ART LINE D/C'D PER ORDER. DIRECT PRESSURE HELD FOR TWO MINUTES, 2X2 AND TEGADERM DRESSING APPLIED. VSS. NO HEMATOMA OR BLEEDING NOTED.
--- NOTE | 2019-02-03 15:00 | NUR ---
REASSESSMENT COMPLETE. VSS. PATIENT IN BEDSIDE CHAIR.
[2019-02-03 15:09] LABS: PLT FUNCT.(P2Y12) PLAVIX 120 PRU (194-418)
--- NOTE | 2019-02-03 15:34 | NUR ---
PATIENT VOIDS WITH SUREWICK 125 CC TO SUCTION CANISTER, MODERATE AMOUNT ON BEDPAD. NONE TO AL CATH. PATIENT ASSISTED BACK TO BED PER REQUEST. CLEANED. VSS.
--- NOTE | 2019-02-03 17:24 | NUR ---
DRESSING TO LEFT THIGH CHANGED. ASHELY DRAIN EMPTIED 65 CC BLOODY DRAINAGE. UP TO BEDSIDE CHAIR FOR DINNER. VSS.
--- NOTE | 2019-02-03 18:09 | NUR ---
PATIENT BACK TO BED. VSS.
--- NOTE | 2019-02-03 19:00 | NUR ---
SHIFT ASSESSMENT COMPLETE. VITAL SIGNS STABLE. NO VISUAL CUES OF DISTRESS NOTED. DENIES NEEDS.
--- NOTE | 2019-02-03 21:00 | NUR ---
VS STABLE. NO VISUAL CUES OF DISTRESS NOTED. DENIES NEEDS AT THIS TIME. WILL CONTINUE TO MONITOR.
--- NOTE | 2019-02-03 23:00 | NUR ---
VS STABLE. NO VISUAL CUES OF DISTRESS NOTED. DENIES NEEDS AT THIS TIME. WILL CONTINUE TO MONITOR.
--- NOTE | 2019-02-03 23:00 | NUR ---
VS STABLE. NO VISUAL CUES OF DISTRESS NOTED. DENIES NEEDS AT THIS TIME. WILL CONTINUE TO MONITOR.
[2019-02-04] VITALS (24 sets, daily range): BP systolic 101–153; BP diastolic 58–85
--- NOTE | 2019-02-04 01:00 | NUR ---
VS STABLE. NO VISUAL CUES OF DISTRESS NOTED. DENIES NEEDS AT THIS TIME. WILL CONTINUE TO MONITOR.
--- NOTE | 2019-02-04 03:00 | NUR ---
VS STABLE. NO VISUAL CUES OF DISTRESS NOTED. DENIES NEEDS AT THIS TIME. WILL CONTINUE TO MONITOR.
--- NOTE | 2019-02-04 05:00 | NUR ---
VS STABLE. NO VISUAL CUES OF DISTRESS NOTED. DENIES NEEDS AT THIS TIME. WILL CONTINUE TO MONITOR.
[2019-02-04 06:24] LABS: BASOPHILS 0.1 % (0-2); EOSINOPHILS 0 % (0-7); HEMATOCRIT 24.9 % (36.0-48.0); HEMOGLOBIN 8.3 g/dL (12-16); IMMATURE GRANULOCYTES 0.7 % (0-5); LYMPHOCYTES 4.7 % (15-50); MCH 28.8 pg (26.0-34.0); MCHC 33.3 g/dL (31.0-37.0); MCV 86.5 fL (80.0-100.0); MEAN PLATELET VOLUME 9.5 fL (7.4-10.4); NEUTROPHILS 89.5 % (40-80); PLATELET COUNT 176 10x3/uL (130-400); RBC 2.88 10x6/uL (4.00-5.40); RDW 14.5 % (11.5-14.5)
[2019-02-04 06:27] LABS: WBC 12.9 10x3/uL (4.8-10.8)
[2019-02-04 06:44] LABS: ANION GAP 13.4 mmol/L (8-16); CALCIUM 7.7 mg/dL (8.5-10.1); CARBON DIOXIDE 24.1 mmol/L (21.0-32.0); MAGNESIUM - SERUM 1.8 mg/dL (1.8-2.4); PHOSPHOROUS 6.3 mg/dL (2.5-4.9); POTASSIUM - SERUM 4.5 mmol/L (3.5-5.1); VANCOMYCIN - RANDOM 10.9 ug/mL (10.0-20.0)
--- NOTE | 2019-02-04 07:00 | NUR ---
RECEIVED BEDSIDE REPORT ON PATIENT AND ASSUMED CARE. PATIENT IN BED, ALERT AND ORIENTED X 4. STATES PAIN CONTROLED, RATES 3//10. CM - SR HR 84, BBS - CLEAR AND EQUAL, DIMINISHED IN THE BASES. PATIENT ASSISTED TO BEDSIDE COMMODE, VOIDS 400 CC STRAW COLORED UOP, ASHELY DRAIN WITH 30 CC BLOODY OUTPUT. PATIENT DRESSING TO LEFT THIGH CHANGED. GOWN AND LINENS CHANGED. PATIENT TO BEDSIDE CHAIR. VSS. HEAD TO TOE ASSESSMENT COMPLETED.
--- NOTE | 2019-02-04 07:40 | NUR ---
PATIENT GIVEN BREAKFAST TRAY. VSS.
--- NOTE | 2019-02-04 08:09 | NUR ---
VS STABLE. NO VISUAL CUES OF DISTRESS NOTED. DENIES NEEDS AT THIS TIME. WILL CONTINUE TO MONITOR.
--- NOTE | 2019-02-04 08:46 | NUR ---
PATIENT ATE 100% OF BREAKFAST, MORNING MEDS GIVEN PER MAY. VSS. NO NEEDS AT THIS TIME.
--- NOTE | 2019-02-04 09:48 | NUR ---
PATIENT UP TO BEDSIDE COMMODE, VOIDS 400 CC URINE. BACK TO BEDSIDE CHAIR.
--- NOTE | 2019-02-04 10:18 | NUR ---
PATIENT C/O PAIN TO BACK RATES 8/10, PRN PAIN MED GIVEN PER MAR.
--- NOTE | 2019-02-04 11:06 | NUR ---
REASSESSMENT COMPLETE. VSS.
--- NOTE | 2019-02-04 11:51 | NUR ---
AL CATH DISCONTINUED PER NANCY MEDINA WITH RENAL. PATIENT GIVEN LUNCH TRAY. VSS.
--- NOTE | 2019-02-04 12:17 | NUR ---
Nutrition Follow-up: S/p pseudo aneurysm repair/evacuation of hematoma on 02/02. Majority of breakfast eaten this AM. No BM reported. Diet: Diabetic Wt: 200.5# Last BM: 01/29 per chart Labs noted: K+ 4.5, PO4 6.3, Glu 140, Ca 7.7 Meds noted: NS @ 70, Solumedrol, Humulin -May consider renal diabetic diet 2/2 elevated PO4. -RD following.
--- NOTE | 2019-02-04 12:32 | NUR ---
DR. CORREA AT ROOM, EXAMINES PATIENT AND ORDERS IV FLUID DC'D.
--- NOTE | 2019-02-04 14:09 | NUR ---
PATIENT UP TO BEDSIDE COMMODE, VOIDS 500 CC UOP, DRESSINGS TO LEFT THIGH CHANGED. EMPTIED 30 CC FROM ASHELY DRAIN. PT HERE TO EVALUATE PATIENT. UP WALKING IN THE HALLWAY.
--- NOTE | 2019-02-04 15:04 | NUR ---
REASSESSMENT COMPLETED, VSS.
--- NOTE | 2019-02-04 15:06 | NUR ---
SPOKE TO DR. KIZZY RUSSELL TO TRANSFER TO FLOOR. ORDER PLACED.
--- NOTE | 2019-02-04 16:02 | NUR ---
PATIENT REPORT CALLED ASHELY RN, PATIENT TO TRANSFER TO ROOM 2108 VIA WHEELCHAIR AND PORTABLE O2. VSS.
--- NOTE | 2019-02-04 16:32 | NUR ---
RECEIVED PT FROM CVICU VIA WHEELCHAIR. PT IS AAO AND UP WITH MIN ASSIST. RR EVEN AND UNLABORED ON 4L HIGH FLOW NC. R.IJ SALINE LOCKED. NO S/S OF DISTRESS NOTED. PT ORIENTED TO ROOM. AT BEDSIDE. PT CURRENTLY SITTING ON EDGE OF BED PER REQUEST. PT DENIES ANY NEEDS AT THIS TIME. CALL LIGHT W/I REACH. WILL CTM.
--- NOTE | 2019-02-04 22:38 | NUR ---
DRESSING SATURATED AND CHANGED TO LEFT GROIN.
[2019-02-05 00:15] VITALS: BP 150/84
[2019-02-05 04:18] VITALS: BP 189/93
[2019-02-05 05:29] LABS: BASOPHILS 0.1 % (0-2); EOSINOPHILS 0.2 % (0-7); HEMATOCRIT 25.9 % (36.0-48.0); HEMOGLOBIN 8.5 g/dL (12-16); IMMATURE GRANULOCYTES 0.8 % (0-5); LYMPHOCYTES 8.3 % (15-50); MCH 28.8 pg (26.0-34.0); MCHC 32.8 g/dL (31.0-37.0); MCV 87.8 fL (80.0-100.0); MEAN PLATELET VOLUME 9.8 fL (7.4-10.4); MONOCYTES 9.9 % (2-11); NEUTROPHILS 80.7 % (40-80); RBC 2.95 10x6/uL (4.00-5.40); RDW 14.7 % (11.5-14.5); WBC 14.1 10x3/uL (4.8-10.8)
--- NOTE | 2019-02-05 05:46 | NUR ---
DRESSING CHANGED TO LEFT GROIN.
[2019-02-05 06:03] LABS: ANION GAP 12.8 mmol/L (8-16); CALCIUM 8.1 mg/dL (8.5-10.1); CARBON DIOXIDE 24.3 mmol/L (21.0-32.0); POTASSIUM - SERUM 4.1 mmol/L (3.5-5.1); VANCOMYCIN - RANDOM 17.2 ug/mL (10.0-20.0)
[2019-02-05 06:14] LABS: PLATELET COUNT 215 10x3/uL (130-400)
--- NOTE | 2019-02-05 07:02 | NUR ---
PT AWAKE AND ORIENTED WHEN I WALKED IN, DOZING IN AND OUT OF SLEEP. NO COMPLAINTS/CONCERNS, ALL QUESTIONS ANSWERED TO THE BEST OF MY ABILITY. NO FAMILY PRESENT AT THIS TIME. CL IN REACH, SRX2
[2019-02-05 09:10] VITALS: BP 145/87
--- NOTE | 2019-02-05 11:30 | NUR ---
rehab prescreen: thank you for this eval. this patient would make a good canidate for IRF. However they need to be more stable before able to transfer, their is still improvement needed with current lab and therapy. the patient also has [facility] insurance that will require a prior authorzation, will monitor pt progress while waiting to hear from insurance company. guy fernandez thank you for this eval. rik weeks lpn cliical liasion
[2019-02-05 12:00] VITALS: BP 129/68; BP 142/85
--- NOTE | 2019-02-05 13:25 | NUR ---
PT GOT UP WITH PT AND AMBULATED DOWN THE LIMON AND BACK. USED A WALKER AND DID VERY WELL. WAS AT BEDSIDE. LURDES DRAIN EMPTIED. NO COMPALINTS OR CONCERNS AT THIS TIME, REQUESTS TO REST. CL IN REACH, SRX2. DISCUSSED WITH AGAPITO CRUZ AND DECIDED TO LEAVE IN PTS RIJ D/T IT BEING HER ONLY IV ACCESS AT THIS TIME. PT DOES NOT WANT TO HAVE A PIV PLACED, AGREES SHE'D PREFER IT LEFT UNTIL SHE NO LONGER NEEDS IV MEDICATIONS
[2019-02-05 16:00] VITALS: BP 128/73
--- NOTE | 2019-02-05 18:23 | NUR ---
CHANGED PTS DRESSING ON ABD/GROIN. WAS LEAKING BLOOD/FLUID AROUND THE INNER THIGH EDGE. CURRENTLY C/D/I. EMPTIED LURDES DRAIN. HAS LEFT FOR THE EVENING. NO COMPLAINTS, CONCERNS, OR QUESTIONS AT THIS TIME. CL IN REACH, SRX2.
[2019-02-05 20:30] VITALS: BP 156/78
[2019-02-06 04:28] LABS: BASOPHILS 0.1 % (0-2); EOSINOPHILS 1.2 % (0-7); HEMATOCRIT 25.2 % (36.0-48.0); HEMOGLOBIN 8.3 g/dL (12-16); IMMATURE GRANULOCYTES 1.2 % (0-5); LYMPHOCYTES 9.1 % (15-50); MCH 29.1 pg (26.0-34.0); MCHC 32.9 g/dL (31.0-37.0); MCV 88.4 fL (80.0-100.0); MEAN PLATELET VOLUME 9.2 fL (7.4-10.4); MONOCYTES 8.1 % (2-11); NEUTROPHILS 80.3 % (40-80); PLATELET COUNT 244 10x3/uL (130-400); RBC 2.85 10x6/uL (4.00-5.40); RDW 14.7 % (11.5-14.5); WBC 13.8 10x3/uL (4.8-10.8)
--- NOTE | 2019-02-06 04:35 | NUR ---
DRESSING CHANGE TO LEFT GROIN
[2019-02-06 04:43] LABS: CREATININE - SERUM 2.5 mg/dL (0.6-1.3); VANCOMYCIN - RANDOM 11.8 ug/mL (10.0-20.0)
--- NOTE | 2019-02-06 08:34 | NUR ---
RECEIVED PT IN BED FINISHING BREAKFAST. FAMILY IN ROOM. PT SOMEWHAT SOB BUT HAD JUST INDEPENDENTLY WENT TO SINK FOR TEETH BRUSHING. FEET WITH +3 EDEMA NOTED, +PULSES.
[2019-02-06 09:14] VITALS: BP 156/89
--- NOTE | 2019-02-06 09:31 | NUR ---
PT WITH LARGE DRESSING TO LEFT GROIN/THIGH AREA THAT IS C/D/I. LURDES DRAIN EMPTIED AND DRESSING NOTED TO IT ALSO. PT WITH LOTS OF SWELLING TO THIGH AND GROIN/ABDOMEN BUT STATES IMPROVED.
[2019-02-06 12:08] LABS: IMMUNOGLOBULIN E 35 IU/mL (6-495)
[2019-02-06 12:32] LABS: APPEARANCE CLEAR (CLEAR); BILIRUBIN NEGATIVE (NEGATIVE); COLOR STRAW (YELLOW); GLUCOSE NEGATIVE (NEGATIVE); KETONE NEGATIVE (NEGATIVE); NITRITE NEGATIVE (NEGATIVE); PROTEIN NEGATIVE (NEGATIVE); SPECIFIC GRAVITY 1.005 (1.005-1.020); UROBILINOGEN NORMAL (NORMAL)
[2019-02-06 12:33] LABS: BACTERIA FEW /hpf (NEGATIVE); EPITHELIAL CELLS 0-5 /hpf (0-5); RED CELLS - URINE 0-5 /hpf (0-5); WHITE CELLS - URINE 0-5 /hpf (NEGATIVE)
[2019-02-06 12:47] VITALS: BP 146/74
[2019-02-06 13:23] LABS: % SATURATION 77 % (15-55); IRON 239 ug/dl (35-150); TOTAL IRON BIND CAPACITY 308 ug/dl (260-445); UNSAT IRON BIND CAPACITY 69 ug/dl (150-375)
--- NOTE | 2019-02-06 14:34 | NUR ---
DRESSING TO RIGHT GROIN CHANGED WITH MEPILEX. NON ADHERENT PLACED OVER AREA OF SKIN TEAR FROM BLISTERS. GAUZE PLACED AT LURDES SITE ALSO. DESMOND INTACT TO INCISION, SWELLING AND BRUISING NOTED.
[2019-02-06 18:21] VITALS: BP 153/92
[2019-02-06 20:00] VITALS: BP 145/81
[2019-02-07] VITALS: BP 195/91
[2019-02-07 04:00] VITALS: BP 150/97
[2019-02-07 05:19] LABS: BASOPHILS 0.1 % (0-2); EOSINOPHILS 1.8 % (0-7); HEMATOCRIT 25.9 % (36.0-48.0); HEMOGLOBIN 8.5 g/dL (12-16); IMMATURE GRANULOCYTES 1.7 % (0-5); LYMPHOCYTES 10.4 % (15-50); MCH 28.9 pg (26.0-34.0); MCHC 32.8 g/dL (31.0-37.0); MCV 88.1 fL (80.0-100.0); MEAN PLATELET VOLUME 9.3 fL (7.4-10.4); MONOCYTES 9.5 % (2-11); NEUTROPHILS 76.5 % (40-80); PLATELET COUNT 267 10x3/uL (130-400); RBC 2.94 10x6/uL (4.00-5.40); RDW 14.6 % (11.5-14.5); WBC 14.3 10x3/uL (4.8-10.8)
[2019-02-07 05:32] LABS: ANION GAP 6.8 mmol/L (8-16); CALCIUM 8.5 mg/dL (8.5-10.1); CARBON DIOXIDE 33.1 mmol/L (21.0-32.0); CREATININE - SERUM 2.3 mg/dL (0.6-1.3); POTASSIUM - SERUM 3.9 mmol/L (3.5-5.1); VANCOMYCIN - RANDOM 18.6 ug/mL (10.0-20.0)
--- NOTE | 2019-02-07 07:08 | NUR ---
PT RECEIVED SITTING UP IN CHAIR, STAYING CLOSE TO BATHROOM POST BUMEX DOSE GIVEN. AT BEDSIDE.
[2019-02-07 07:38] VITALS: BP 170/94
[2019-02-07 11:24] VITALS: BP 149/83
[2019-02-07 13:14] LABS: PATH REVIEW PERIPHERAL SMEAR REVIEWED
[2019-02-07 15:06] VITALS: BP 157/81
--- NOTE | 2019-02-07 16:43 | NUR ---
Rehab Note- PreAuth started for an inpatient acute rehab stay with [facility]. Will continue to await determination. THank you for this referral! Naomy Cunningham RN Clinical Liaison, [facility]
--- NOTE | 2019-02-07 19:52 | NUR ---
REPORT RECIEVED AND ROUNDING COMPLETE. PATIENT SITTING UP IN HER BED IN HIGH FOWLERS. PATIENT STATES SHE WOULD LIKE ME TO PULL HER IJ CENTERAL LINE. PATIENT NEEDS A PIV PUT DOSENT WANT ONE, I EXPLAINED THAT SHE NEEDS ONE BECAUSE OF HER ABX THERAPY SHE IS RECIEVEING. PATIENT AGREED TO LET ME TRYING LATER THIS EVENING. PATIENT SHOWING NO S/SX OF DISTRESS AT THIS TIME. CALL LIGHT WITHIN REACH AND BED IN LOWEST LOCKED POSITION. PATIENT HAS DRESSING TO HER LEFT THIGH AND GROIN. DRESSINGS ARE C/D/I. PATIENT ALSO HAS A LEFT THIGH LURDES DRAIN, PATIENT STATES THAT THE DRAIN SHOULD COME OUT IN THE MORNING. PATIENT HAS NO NEEDS AT THIS TIME.
--- NOTE | 2019-02-07 22:45 | NUR ---
PLACED A 22 GAUGE IN LEFT FOREARM X2 STICKS PATIENT TOLERATED WELL. PATIENT HEAVY BLEEDER, CALLED CHARLES MEDINA FOR [facility] PTT BEFORE PULLING CVL. CHARLES GAVE ORDER.
[2019-02-07 22:48] LABS: APTT 24.3 SECONDS (22.8-39.4); INR 0.96 (0.85-1.17); PROTIME 12.3 SECONDS (11.6-15.0)
[2019-02-08 00:49] VITALS: BP 146/74
[2019-02-08 05:36] LABS: HEMATOCRIT 25.6 % (36.0-48.0); HEMOGLOBIN 8.2 g/dL (12-16); MCH 28.7 pg (26.0-34.0); MCV 89.5 fL (80.0-100.0); MEAN PLATELET VOLUME 9.6 fL (7.4-10.4); RBC 2.86 10x6/uL (4.00-5.40); RDW 14.7 % (11.5-14.5); WBC 15.8 10x3/uL (4.8-10.8)
[2019-02-08 05:38] VITALS: BP 151/79
[2019-02-08 05:38] LABS: PLATELET COUNT 327 10x3/uL (130-400)
[2019-02-08 05:43] LABS: ANION GAP 9.6 mmol/L (8-16); CALCIUM 8.9 mg/dL (8.5-10.1); CARBON DIOXIDE 33.3 mmol/L (21.0-32.0); CREATININE - SERUM 2.3 mg/dL (0.6-1.3); POTASSIUM - SERUM 3.9 mmol/L (3.5-5.1); VANCOMYCIN - RANDOM 20.9 ug/mL (10.0-20.0)
--- NOTE | 2019-02-08 06:02 | NUR ---
I have reviewed this patient and I concur with the Shift Assessment completed by the Licensed Practical Nurse today this shift.
[2019-02-08 07:59] VITALS: BP 177/74
--- NOTE | 2019-02-08 08:59 | NUR ---
PT RECEIVED SITTING UP IN CHAIR, AWAKE AND ALERT. DRESSING TO LEFT THIGH/GROIN NOTED. PT WITH BM THIS MORNING. AT BEDSIDE.
--- NOTE | 2019-02-08 09:26 | NUR ---
DRESSING TO CVL SITE CHANGED WITH 2X2 AND TEGADERM. NO BLEEDING NOTED. INSTRUCTED PT TO LEAVE ON FOR 24 HOURS BEFORE SHOWERING.
[2019-02-08 11:41] LABS: ANISOCYTOSIS OCC; EOSINOPHILS 1 % (0-7); LYMPHOCYTES 16 % (15-50); MONOCYTES 10 % (2-11); NEUTROPHILS 72 % (40-80); PLATELET ESTIMATE NORMAL
[2019-02-08 11:45] VITALS: BP 169/96
[2019-02-08 13:10] LABS: SPE - ALBUMIN 2.5 g/dL (2.9-4.4); SPE - ALPHA-1 GLOBULIN 0.3 g/dL (0.0-0.4); SPE - ALPHA-2 GLOBULIN 0.8 g/dL (0.4-1.0); SPE - BETA GLOBULIN 0.9 g/dL (0.7-1.3); SPE - GAMMA GLOBULIN 0.4 g/dL (0.4-1.8); SPE - M-SPIKE Not Observed g/dL (Not Observed)
[2019-02-08] MEDS ORDERED: PLAVIX75 MG PO (13:19)
[2019-02-08] MEDS ORDERED: LOPRESSOR25 MG PO (13:20)
[2019-02-08] MEDS ORDERED: HEMOCYTE PLUS C1 CAP PO (13:20)
[2019-02-08] MEDS ORDERED: NORVASC5 MG PO (13:20)
[2019-02-08] MEDS ORDERED: PREDNISONE10 MG PO (13:24)
[2019-02-08] MEDS ORDERED: BUMEX2 MG PO (13:44)
--- NOTE | 2019-02-08 14:26 | MORECARE ---
CASE MANAGEMENT DISCHARGE SUMMARY PATIENT: ZEN HEAD UNIT: [id number] ADM DATE: 01/29/19 AGE: 58 : 60 SEX: F ROOM/BED: D.0670 AUTHOR: ORLANDO,DOC PHYSICIAN: REFERRING PHYSICIAN: KAYLEN DURAND MD DATE OF SERVICE: 02/08/19 Discharge Plan Patient Name: ZEN HEAD Facility: [facility]:[place] : 1960 Planned Disposition: Home Anticipated Discharge Date: 02/08/19 Discharge Date: Expected LOS: 10 Initial Reviewer: [email or web address] Initial Review Date: 01/31/2019 Generated: 02/08/19 3:26 pm Comments DCP- Discharge Planning Updated by [email or web address]: Anatoly Noble on 02/08/19 1:[address] Patient Name: ZEN HEAD Encounter No: [id number] : 1960 Primary Insurance: [facility] MEDICARE SOLUTIONS Anticipated DC Date: 02-08-2019 Planned Disposition: Home DCP follow-up note: CM RECEIVED ORDER FOR INPATIENT REHAB PRESCREENING, MET WITH PT AND SPOUSE IN ROOM TO DISCUSS DISCHARGE NEEDS AND PLANNING. ZNE HEAD provided verbal consent to discuss current and ongoing needs with/in the presence of: SPOUSEMICHAEL. CM DISCUSSED AVAILABILITY OF HOME HEALTH, REHAB SERVICES AND MEDICAL EQUIPMENT. PT DENIES DISCHARGE NEEDS, DENIES NEED FOR REHAB SERVICES AND HOME HEALTH. SPOUSE TO TRANSPORT HOME AT DISCHARGE. IMPORTANT MESSAGE FROM MEDICARE PROVIDED AND EXPLAINED. CAROL CHENG NOTIFIED. [facility] OF [facility] INPATIENT REHAB NOTIFIED. SOUND TRUCK OPERATOR NURSE NOTIFIED. Anatoly Noble CASE MANUEL DCP- Discharge Planning Updated by [email or web address]: Adela Fitch on 02/01/19 11:[address] LATE ENTRY D/C IMM SIGNED 02/01/19 @ 1610. DENIES ANY D/C NEEDS DCP- Discharge Planning Updated by [email or web address]: Adela Fitch on 02/01/19 11:[address] LATE ENTRY 02/01/19 Patient Name: ZEN HEAD Admission Status: ER Accout number: [id number] Admission Date: 01-29-2019 : 1960 Admission Diagnosis: Attending: KAYLEN DURAND Current LOS: 4 Anticipated DC Date: Planned Disposition: Primary Insurance: [facility] MEDICARE SOLUTIONS Discharge Planning Comments: CM met with patient to complete initial dc planning assessment. CM educated patient on the CM role and verbal consent given by patient to complete assessment. Patient lives at home with her where she is independent with her care. At discharge patient plans to return home and feels this is a safe discharge. CM discussed availability of home health, rehab services, and medical equipment. Her will drive her home. Patient denied known discharge needs at this time. CM will continue to follow and will assist as needed with dc plans/needs. Automobile Or Truck Rental Dispatcher: Adela Fitch DCPIA - Discharge Planning Initial Assessment Updated by [email or web address]: Adela Fitch on 02/02/19 12:20 am * Is the patient Alert and Oriented? Yes * How many steps to enter\exit or inside your home? * PCP NAIDA PRYOR * Pharmacy [facility] * Preadmission Environment Home with Family * ADLs Independent * Equipment None * List name and contact numbers for known caregivers / representatives who currently or will assist patient after discharge: MICHAEL HEAD - SPOUSE - [phone] * Verbal permission to speak to the caregivers and representatives has been obtained from the patient. Yes * Community resources currently utilized None * Additional services required to return to the preadmission environment? No * Can the patient safely return to the preadmission environment? Yes * Has this patient been hospitalized within the prior 30 days at any hospital? No Coverage Notice Reviewer: [id number] - Adela Fitch Notice Issued Date-Time: 02/01/2019 16:10 Notice Type: IM Discharge Notice Notice Delivered To: Family Member Relationship to Patient: Spouse Beet End Supervisor Name: michael head Delivery Method: HAND - Hand Delivered Nuha Days: Prior Verbal Notification: Recipient Understood Notice: Yes Recipient Signature: Yes Med Rec Note Co-signed by Attending: Coverage Notice Comment: Reviewer: [id number] - Anatoly Noble Notice Issued Date-Time: 02/08/2019 12:05 Notice Type: IM Discharge Notice Notice Delivered To: Patient Relationship to Patient: Beet End Supervisor Name: Delivery Method: HAND - Hand Delivered Nuha Days: Prior Verbal Notification: Recipient Understood Notice: Yes Recipient Signature: Yes Med Rec Note Co-signed by Attending: Coverage Notice Comment: Last DP export: 02/01/19 11:30 Patient Name: ZEN HEAD Page [id number] at 1426 All edits/amendments must be made on the electronic document DICTATION DATE: 02/08/191425 TEST RACK OPERATOR: CHLOE 02/08/191425 RPT#: [id number] DC DATE: STATUS: ADM IN [facility] [address] [place] [address] END OF REPORT
[2019-02-08] MEDS ORDERED: BAYER CHEWABLE81 MG PO (15:07)
--- NOTE | 2019-02-08 16:22 | NUR ---
ALERT AND ORIENTED X4. DC LT FA IV TIP INTACT. DISCHARGE INSTRUCTIONS GIVEN VERBALLY AND WRITTEN. DISCHARGE PAPERS SIGNED ON CHART. ESCORT TO RIDE VIA WHEELCHAIR. REMAINS FREE FROM INJURY.
--- NOTE | 2019-02-08 18:34 | NUR ---
OT NOTE: PT COMPLETED BED MOB WITH SPV. PT COMPLETED EOB SITTING WITH SPV. THANK YOU, MEHDI SANCHEZ
--- NOTE | 2019-02-14 12:42 | MORECARE ---
CASE MANAGEMENT DISCHARGE SUMMARY PATIENT: ZEN HEAD UNIT: [id number] ADM DATE: 01/29/19 AGE: 58 : 60 SEX: F ROOM/BED: D.2105 AUTHOR: ORLANDO,DOC PHYSICIAN: REFERRING PHYSICIAN: KAYLEN DURAND MD DATE OF SERVICE: 02/14/19 Discharge Plan Patient Name: ZEN HEAD Facility: [facility]:[place] : 1960 Planned Disposition: Home Anticipated Discharge Date: 02/08/19 Discharge Date: 02/08/2019 Expected LOS: 10 Initial Reviewer: [email or web address] Initial Review Date: 01/31/2019 Generated: 02/14/19 1:41 pm Comments DCP- Discharge Planning Updated by [email or web address]: Anatoly Noble on 02/14/19 11:[address] Patient Name: ZEN HEAD Encounter No: [id number] : 1960 Primary Insurance: [facility] MEDICARE SOLUTIONS Anticipated DC Date: 02-08-2019 Planned Disposition: Home DCP follow-up note: CM RECEIVED FAX OF INPATIENT REHAB SERVICES DENIAL FROM PT'S INSURANCE COMPANY. AT 1136 HOURS, CM CALLED PT'S LISTED HOME NUMBER, , THERE WAS NO ANSWER AND NO VOICE MAIL SET UP. CM CALLED PT'S EMERGNCY CONTACT, MICHAEL HEAD, , LEFT MESSAGE ASKING FOR RETURN CALL AT 1138 HOURS. AT 1238 HOURS, THERE HAS BEEN NO RETURN CALL FROM PT OR PT'S SPOUSE. CM PROVIDED NOTICE TO CASE MANAGEMENT BLAST FURNACE HELPER TO MAIL TO PT'S HOME ADDRESS, [address] [place] [address]. [id number]. ISMAEL Lemos DCP- Discharge Planning Updated by [id number]: Anatoly Noble on 02/08/19 1:[address] Patient Name: ZEN HEAD Encounter No: [id number] : 1960 Primary Insurance: [facility] MEDICARE SOLUTIONS Anticipated DC Date: 02-08-2019 Planned Disposition: Home DCP follow-up note: CM RECEIVED ORDER FOR INPATIENT REHAB PRESCREENING, MET WITH PT AND SPOUSE IN ROOM TO DISCUSS DISCHARGE NEEDS AND PLANNING. ZEN HEAD provided verbal consent to discuss current and ongoing needs with/in the presence of: SPOUSE, MICHAEL. CM DISCUSSED AVAILABILITY OF HOME HEALTH, REHAB SERVICES AND MEDICAL EQUIPMENT. PT DENIES DISCHARGE NEEDS, DENIES NEED FOR REHAB SERVICES AND HOME HEALTH. SPOUSE TO TRANSPORT HOME AT DISCHARGE. IMPORTANT MESSAGE FROM MEDICARE PROVIDED AND EXPLAINED. CAROL CHENG NOTIFIED. [facility] INPATIENT REHAB NOTIFIED. ROVING MARKER NURSE NOTIFIED. Anatoly Noble, CASE MANAGEMENT DCP- Discharge Planning Updated by [email or web address]: Adela Fitch on 02/01/19 11:[address] LATE ENTRY D/C IMM SIGNED 02/01/19 @ 1610. DENIES ANY D/C NEEDS DCP- Discharge Planning Updated by [email or web address]: Adela Fitch on 02/01/19 11:[address] LATE ENTRY 02/01/19 Patient Name: ZEN HEAD Admission Status: ER Accout number: [id number] Admission Date: 01-29-2019 : 1960 Admission Diagnosis: Attending: KAYLEN DURAND Current LOS: 4 Anticipated DC Date: Planned Disposition: Primary Insurance: [facility] MEDICARE SOLUTIONS Discharge Planning Comments: CM met with patient to complete initial dc planning assessment. CM educated patient on the CM role and verbal consent given by patient to complete assessment. Patient lives at home with her where she is independent with her care. At discharge patient plans to return home and feels this is a safe discharge. CM discussed availability of home health, rehab services, and medical equipment. Her will drive her home. Patient denied known discharge needs at this time. CM will continue to follow and will assist as needed with dc plans/needs. Hardware Supplies Sales Representative: Adela Fitch DCPIA - Discharge Planning Initial Assessment Updated by [email or web address]: Adela Fitch on 02/02/19 12:20 am * Is the patient Alert and Oriented? Yes * How many steps to enter\exit or inside your home? * PCP NAIDA PRYOR * Pharmacy [facility] * Preadmission Environment Home with Family * ADLs Independent * Equipment None * List name and contact numbers for known caregivers / representatives who currently or will assist patient after discharge: MICHAEL HEAD - SPOUSE - [phone] * Verbal permission to speak to the caregivers and representatives has been obtained from the patient. Yes * Community resources currently utilized None * Additional services required to return to the preadmission environment? No * Can the patient safely return to the preadmission environment? Yes * Has this patient been hospitalized within the prior 30 days at any hospital? No Coverage Notice Reviewer: [email or web address] Aakash Fitch Notice Issued Date-Time: 02/01/2019 16:10 Notice Type: IM Discharge Notice Notice Delivered To: Family Member Relationship to Patient: Spouse Transformer Stock Clerk Name: michael head Delivery Method: HAND - Hand Delivered Nuha Days: Prior Verbal Notification: Recipient Understood Notice: Yes Recipient Signature: Yes Med Rec Note Co-signed by Attending: Coverage Notice Comment: Reviewer: [email or web address] Aakash Noble Notice Issued Date-Time: 02/08/2019 12:05 Notice Type: IM Discharge Notice Notice Delivered To: Patient Relationship to Patient: Transformer Stock Clerk Name: Delivery Method: HAND - Hand Delivered Nuha Days: Prior Verbal Notification: Recipient Understood Notice: Yes Recipient Signature: Yes Med Rec Note Co-signed by Attending: Coverage Notice Comment: Last DP export: 02/08/19 1:26 Patient Name: ZEN HEAD Page 73881 at 1242 All edits/amendments must be made on the electronic document DICTATION DATE: 02/14/19 1241 DOUGHNUT MACHINE OPERATOR HELPER: CHLOE 02/14/19 1241 RPT#: [id number] DC DATE:02/08/19 STATUS: DIS IN [facility] [address] [place] [address] END OF REPORT
== END 2019-02-08 16:23 | disposition home or self-care (01) | DRG 246 ==
LOC: D.ER 19:59 → D.CVICU 20:59 → D.M2 20:59 → D.ICU 20:59 → D.CVICU 02-02 11:43 → D.M2 02-04 16:25
PROVIDERS: Family Medicine; Internal Medicine Cardiovascular Disease; Internal Medicine Interventional Cardiology; Internal Medicine Nephrology; Internal Medicine Pulmonary Disease; Thoracic Surgery (Cardiothoracic Vascular Surgery); ADMIT Internal Medicine Nephrology; ATTEND Internal Medicine Nephrology
PROC: B2151ZZ Fluoroscopy of Left Heart using Low Osmolar Contrast (ICD-10-PCS; 2019-01-31)
PROC: 4A023N7 Measurement of Cardiac Sampling and Pressure, Left Heart, Percutaneous Approach (ICD-10-PCS; 2019-01-31)
PROC: B2111ZZ Fluoroscopy of Multiple Coronary Arteries using Low Osmolar Contrast (ICD-10-PCS; principal; 2019-01-31 10:24)
PROC: 027034Z Dilation of Coronary Artery, One Artery with Drug-eluting Intraluminal Device, Percutaneous Approach (ICD-10-PCS; 2019-02-01)
PROC: 04QL0ZZ Repair Left Femoral Artery, Open Approach (ICD-10-PCS; 2019-02-02)
PROC: 0HCJXZZ Extirpation of Matter from Left Upper Leg Skin, External Approach (ICD-10-PCS; 2019-02-02)
DX: I21.4 Non-ST elevation (NSTEMI) myocardial infarction (principal); N17.0 Acute kidney failure with tubular necrosis; J96.22 Acute and chronic respiratory failure with hypercapnia; J96.21 Acute and chronic respiratory failure with hypoxia; J44.1 Chronic obstructive pulmonary disease with (acute) exacerbation; F17.203 Nicotine dependence unspecified, with withdrawal; D62 Acute posthemorrhagic anemia; T81.718A Complication of other artery following a procedure, not elsewhere classified, initial encounter; K21.9 Gastro-esophageal reflux disease without esophagitis; E78.5 Hyperlipidemia, unspecified; I12.9 Hypertensive chronic kidney disease with stage 1 through stage 4 chronic kidney disease, or unspecified chronic kidney disease; E11.22 Type 2 diabetes mellitus with diabetic chronic kidney disease; N18.3 Chronic kidney disease, stage 3 (moderate); I72.4 Aneurysm of artery of lower extremity

== ENCOUNTER 2019-02-22 11:36 | Inpatient (IN) | payer MEDICARE ==
[~2019-02-22] VITALS: Ht 149.9 cm; Wt 72.1 kg
--- NOTE | ~2019-02-22 | EC ---
PATIENT:ZEN HEAD DATE OF SERVICE: 02/22/19 SEX: F MEDICAL RECORD: [id number] DATE OF : 60 LOCATION:D.M2 D.210 AGE OF PATIENT: 58 ADMISSION DATE: 02/22/19 REFERRING PHYSICIAN: INTERPRETING PHYSICIAN: ALEXIS CHAVEZ MD ECHOCARDIOGRAM REPORT ECHO CHARGES 5 ECHO LIMITED Date: 02/23/19 CLINICAL DIAGNOSIS: CMP ECHOCARDIOGRAPHIC MEASUREMENTS (adult normal given) AC root (d.<3.7cm) 0 cm LV Septum d (<1.2 cm> 0 cm Valve Excursion 0 cm LV Septum (systole) 0 cm Left Atria (s.<4.0cm> 0 cm LVPW d(<1.2cm) 0 cm RV (d.<2.3cm) 0 cm LVPW (sytole) 0 cm LV diastole(<5.6CM) 0 cm MV E-F(>70mm/sec) 0 cm LV systole 0 cm LVOT Diameter 0 cm MV exc.(>10mm) 0 cm Est.ejection fraction (50-75%) % DOPPLER: LVIT cm/sec A 0 cm/sec E 0 cm/sec LA 0 cm/sec RVSP 0 mmHg LVOT cm/sec AOP1/2T 0 m/s Asc. Ao 0 cm/sec RVOT 0 cm/sec RA cm/sec PA cm/sec AV Gradient Peak 0 mmHg AV Mean mmHg AV Area 0 cm MV Gradient Peak 0 mmHg MV Mean 0 mmHg MV Area 00 cm COMMENTS: Java Development Team Lead: Zane SOOD Commercial Energy Auditor: 3 Dr. Rodriguez TAPE# PACS Pericardial Effusion N DATE OF SERVICE: 02/23/2019 Adequate 2-D echo, color-flow and spectral Doppler, and M-mode. LVH is present. LV internal dimensions are normal. Wall motion is normal. EF is greater than or equal to 55%. Aortic valve is tricuspid. No evidence of stenosis by Doppler interrogation. Left atrium appears normal. Mitral valve appears normal. IMPRESSION: Normal LV function. No obvious valve abnormalities. ECHOCARDIOGRAM REPORT [id number] ZEN HEAD TRANSINT:[id number] Voice Confirmation ID: [id number] DOCUMENT ID: [id number] ALEXIS CHAVEZ MD CC: [id number] DICTATION DATE: 02/23/19 1539 HAND BRAILLE TRANSCRIBER: 02/23/19 2223 ADM IN [facility] [address] [place] [address]
[~2019-02-22 11:36] MED LIST: BAYER CHEWABLE81 MG PO; BUMEX2 MG PO; BYDUREON P2 MG/0.65 SC; CELEXA20 MG PO; CYMBALTA60 MG PO; GLUCOPHAGE500 MG PO; HEMOCYTE PLUS C1 CAP PO; HYDROCODON-ACE1 EA10 PO; IBUPROFEN600 MG PO; LIPITOR80 MG PO; LISINOPRIL-HCT1 EAC8 PO; LISINOPRIL20 MG PO; LOPRESSOR25 MG PO; NEXIUM40 MG PO; NORVASC5 MG PO; PLAVIX75 MG PO; PREDNISONE10 MG PO; ULTRAM50 MG PO; XANAX0.5 MG PO; ZESTRIL20 MG PO
[2019-02-22] MEDS ORDERED: JANUVIA25 MG PO (12:00)
[2019-02-22 12:15] LABS: BASOPHILS 0.2 % (0-2); EOSINOPHILS 0.4 % (0-7); HEMOGLOBIN 9.3 g/dL (12-16); IMMATURE GRANULOCYTES 0.3 % (0-5); LYMPHOCYTES 5.1 % (15-50); MEAN PLATELET VOLUME 9.1 fL (7.4-10.4); MONOCYTES 5.9 % (2-11); NEUTROPHILS 88.1 % (40-80); PLATELET COUNT 342 10x3/uL (130-400); RDW 22.2 % (11.5-14.5); WBC 17.2 10x3/uL (4.8-10.8)
[2019-02-22 12:33] LABS: CALC OSMOLALITY 290 mosm/kg (275-300); CALCIUM 9.9 mg/dL (8.5-10.1); CARBON DIOXIDE 26.8 mmol/L (21.0-32.0); CHLORIDE - SERUM 103 mmol/L (98-107); CREATININE - SERUM 2.2 mg/dL (0.6-1.3); GLUCOSE 162 mg/dL (74-106); POTASSIUM - SERUM 4.4 mmol/L (3.5-5.1); SODIUM 140 mmol/L (136-145); UREA NITROGEN 36 mg/dL (7-18); eGFR NON AFRICAN AMERICAN 24 mL/min (90-120)
[2019-02-22 12:49] LABS: APTT 36.5 SECONDS (22.8-39.4); INR 1.06 (0.85-1.17); PROTIME 13.3 SECONDS (11.6-15.0)
[2019-02-22 12:50] LABS: ALBUMIN 2.8 g/dL (3.4-5.0); ALKALINE PHOSPHATASE 132 U/L (46-116); ALT (SGPT) 31 U/L (10-68); BILIRUBIN - TOTAL 0.76 mg/dL (0.2-1.3); CKMB 1.7 U/L (0.0-3.6); CREATINE KINASE 27 UL (21-215); PRO BNP 11140 pg/mL (0-125); PROTEIN - SERUM 7.4 g/dL (6.4-8.2); TROPONIN-I < 0.017 ng/mL (0.000-0.060)
--- NOTE | 2019-02-22 14:41 | MORECARE ---
CASE MANAGEMENT DISCHARGE SUMMARY PATIENT: ZEN KING UNIT: [id number] ADM DATE: 02/22/19 AGE: 58 : 60 SEX: F ROOM/BED: D.8306 AUTHOR: ORLANDO,DOC PHYSICIAN: REFERRING PHYSICIAN: KAYLEN AMARO MD DATE OF SERVICE: 02/22/19 Discharge Plan Patient Name: ZEN KING Facility: [facility]:[place] : 1960 Planned Disposition: Home Anticipated Discharge Date: 02/24/19 Discharge Date: Expected LOS: 2 Initial Reviewer: [email or web address] Initial Review Date: 02/22/2019 Generated: 02/22/19 3:40 pm Comments DCP- Discharge Planning Updated by [email or web address]: Marsha Lunsford on 02/22/19 1:[address] DC PLAN: Return home with her . ANTICIPATED DC NEEDS: Denied home health or other dc needs. CM met with patient and her to complete initial dc planning assessment. CM educated patient on the CM role and verbal consent given by patient to complete assessment. CM verified patient's address, phone number, and emergency contact phone numbers. Patient lives at home with her who has been assisting in her care post op surgery dc January. She reports she has 38 karime from her procedure and she has been to Dr. Rodriguez office twice and has been told her incision is to moist and the karime are not ready to be removed. She also had her first scheduled appointment with Dr. Rivera today for renal failure. She and her family are requesting that both Dr. Barreto and Dr. Rivera be consulted so they will see her here in the hospital. CM called Linda ALTMAN with Dr. Amaro who gave order to consult both physicians. At discharge patient plans to return home and feels this is a safe discharge. CM discussed availability of home health, rehab services, and medical equipment. Patient denied known discharge needs at this time. Transportation provider at discharge will be her . CM will continue to follow and will assist as needed with dc plans/needs. Marsha Lunsford RN, [facility] DCPIA - Discharge Planning Initial Assessment Updated by [email or web address]: Marsha Lunsford on 02/22/19 2:30 pm * Is the patient Alert and Oriented? Yes * PCP Dr. Reina * Pharmacy [facility] [place] * Preadmission Environment Home with Family * ADLs Partial Dependent * Partial ADLs (Assistance needed) Bathing Dressing * List name and contact numbers for known caregivers / representatives who currently or will assist patient after discharge: Clark King - spouse - [phone] * Verbal permission to speak to the caregivers and representatives has been obtained from the patient. Yes * Community resources currently utilized None * Additional services required to return to the preadmission environment? No * Can the patient safely return to the preadmission environment? Yes * Has this patient been hospitalized within the prior 30 days at any hospital? Yes Patient Name: ZEN KING Page 48586 at 1441 All edits/amendments must be made on the electronic document DICTATION DATE: 02/22/191439 WARP DRESSER: CHLOE 02/22/19 144 RPT#: [id number] DC DATE: STATUS: ADM IN [facility] [address] [place] [address] END OF REPORT
[2019-02-22 15:13] VITALS: BP 135/74
--- NOTE | 2019-02-22 15:16 | NUR ---
ROCEPHIN COMPLETE AT 1445
[2019-02-22 16:38] VITALS: BP 148/83; BMI 29.4
--- NOTE | 2019-02-22 17:03 | NUR ---
WHEN ADMITTING THIS PATIENT I SEE THAT SHE HAS MANY DESMOND THAT ARE GROWN IN THE SKIN. DR DURAND WAS ROUNDING AND HE CAME IN AND REMOVED THEM. ADMISSION COMPLETED. WILL CLEAN THE AREA WITH HIPPA CLEANSE AND LET AIR DRY. IV IS INFUSING ANTIBIOTICS ORDERED.
--- NOTE | 2019-02-22 17:35 | NUR ---
PATIENT REMORTS HAVING HAD SURGERY ON THE January. DR DURAND JUST REMOVED 39 DESMOND AT BEDSIDE. WILL CLEANSE THE AREA WITH HIPPA CLEANSE AND KEEP CLEAN AND DRY.
--- NOTE | 2019-02-22 18:01 | NUR ---
PATIENT IS GOING FOR CT NOW.
--- NOTE | 2019-02-22 18:44 | NUR ---
PATIENT IS GETTING A ULTRASOUND NOW.
--- NOTE | 2019-02-22 19:10 | NUR ---
CO PAIN AND wanting a ronnitene pqatch will inform md LOTS OF FAMILY PRESENT AND BED LOW AND LOCKED
[2019-02-22 19:54] LABS: CKMB 1.7 U/L (0.0-3.6); CREATINE KINASE 24 UL (21-215); TROPONIN-I < 0.017 ng/mL (0.000-0.060)
[2019-02-22 20:00] VITALS: BP 158/84
[2019-02-23] VITALS: BP 124/61
[2019-02-23 02:28] LABS: CKMB 2.1 U/L (0.0-3.6); CREATINE KINASE 27 UL (21-215); TROPONIN-I < 0.017 ng/mL (0.000-0.060)
[2019-02-23 04:00] VITALS: BP 120/57
[2019-02-23 05:53] LABS: BASOPHILS 0.2 % (0-2); EOSINOPHILS 1.7 % (0-7); HEMATOCRIT 27.8 % (36.0-48.0); HEMOGLOBIN 8.4 g/dL (12-16); IMMATURE GRANULOCYTES 0.3 % (0-5); LYMPHOCYTES 6.9 % (15-50); MCH 30.4 pg (26.0-34.0); MCHC 30.2 g/dL (31.0-37.0); MCV 100.7 fL (80.0-100.0); MEAN PLATELET VOLUME 9.4 fL (7.4-10.4); MONOCYTES 5.2 % (2-11); NEUTROPHILS 85.7 % (40-80); PLATELET COUNT 316 10x3/uL (130-400); RBC 2.76 10x6/uL (4.00-5.40); RDW 22.1 % (11.5-14.5)
[2019-02-23 06:08] LABS: ALBUMIN 2.3 g/dL (3.4-5.0); BILIRUBIN - TOTAL 0.56 mg/dL (0.2-1.3); CALCIUM 9.2 mg/dL (8.5-10.1); PROTEIN - SERUM 6.5 g/dL (6.4-8.2)
[2019-02-23 06:40] LABS: WBC 8.8 10x3/uL (4.8-10.8)
--- NOTE | 2019-02-23 07:36 | NUR ---
PT SITTING UP IN BED. RR EVEN AND UNLABORED. DENIES NEEDS OR PAIN AT THIS TIME. BED IN LOWEST POSITION. CALL LIGHT WITHIN REACH. WILL CONTINUE TO MONITOR.
[2019-02-23 08:28] VITALS: BP 159/82
--- NOTE | 2019-02-23 10:02 | NUR ---
I have reviewed this patient and I concur with the Shift Assessment completed by the Licensed Practical Nurse today this shift.
[2019-02-23 12:57] VITALS: BP 147/86
[2019-02-23 13:03] VITALS: Ht 149.9 cm; Wt 72.1 kg
[2019-02-23 16:17] VITALS: BP 153/74
--- NOTE | 2019-02-23 17:54 | NUR ---
PT WILL NOT KEEP NC ON. INSTRUCTED TO PUT BACK ON. EDUCATED ON IMPORTANCE OF MEASURING URINE OUTPUT. PT VERBALIZED UNDERSTANDING. WENT BACK IN ROOM TO COLLECT URINE, PT STATED SHE HAS BEEN DUMPING URINE OUT IN TOILET. RE-EDUCATED. WILL CONTINUE TO MONITOR.
[2019-02-23 19:00] VITALS: BP 149/71
[2019-02-24] VITALS: BP 130/69
--- NOTE | 2019-02-24 03:31 | NUR ---
LEFT GROIN CLEANED WITH HIBICLENS AND A 4X4 PLACED OVER INCISION PER ORDER.
[2019-02-24 04:00] VITALS: BP 128/59
[2019-02-24 06:28] LABS: C-REACTIVE PROTEIN 11.3 mg/dL (0.0-0.9); VANCOMYCIN - RANDOM 20.6 ug/mL (10.0-20.0)
--- NOTE | 2019-02-24 07:30 | NUR ---
ASSESSMENT DONE. DENIES NEEDS
[2019-02-24 07:49] LABS: ERYTHROCYTE SEDIMENTATION RATE 30 mm/hr (0-30)
[2019-02-24 09:49] VITALS: BP 131/76
--- NOTE | 2019-02-24 11:32 | NUR ---
I have reviewed this patient and I concur with the Shift Assessment completed by the Licensed Practical Nurse today this shift.
[2019-02-24 13:37] VITALS: BP 144/81
[2019-02-24 17:16] VITALS: BP 148/91
[2019-02-24 20:00] VITALS: BP 157/73
[2019-02-25] VITALS: BP 158/78
[2019-02-25 08:55] LABS: ANION GAP 13.7 mmol/L (8-16); CALCIUM 9.1 mg/dL (8.5-10.1); CARBON DIOXIDE 27.2 mmol/L (21.0-32.0); CREATININE - SERUM 1.9 mg/dL (0.6-1.3); POTASSIUM - SERUM 3.9 mmol/L (3.5-5.1)
[2019-02-25 09:27] VITALS: BP 153/85
--- NOTE | 2019-02-25 10:23 | NUR ---
PATIENT HAS GOTTEN UP TO GET A SHOWER AND REPORTS FEELING MUCH BETTER THIS MORNING. SHE STATES THAT SHE IS HOPEFUL THAT SHE WILL BE ABLE TO GO HOME TODAY.
[2019-02-25 10:26] LABS: BASOPHILS 0.5 % (0-2); EOSINOPHILS 3.3 % (0-7); HEMATOCRIT 28.3 % (36.0-48.0); HEMOGLOBIN 8.4 g/dL (12-16); IMMATURE GRANULOCYTES 0.5 % (0-5); LYMPHOCYTES 13.4 % (15-50); MCH 29.8 pg (26.0-34.0); MCHC 29.7 g/dL (31.0-37.0); MCV 100.4 fL (80.0-100.0); MEAN PLATELET VOLUME 9.1 fL (7.4-10.4); MONOCYTES 10.7 % (2-11); NEUTROPHILS 71.6 % (40-80); PLATELET COUNT 343 10x3/uL (130-400); RBC 2.82 10x6/uL (4.00-5.40); RDW 21.4 % (11.5-14.5)
[2019-02-25 10:27] LABS: WBC 5.7 10x3/uL (4.8-10.8)
[2019-02-25 12:36] VITALS: BP 143/82
--- NOTE | 2019-02-25 13:15 | NUR ---
Nutrition Follow-up: Pt reports eating well. Denies N/V/C/D. Reports painful swallowing improved. Noted possible d/c today. Diet: Renal ADA Wt: 158.7# Last BM: 02/24 Labs reviewed Meds reviewed -Continue current diet as tolerated. -RD following.
[2019-02-25] MEDS ORDERED: CLEOCIN HCL300 MG PO (15:19)
--- NOTE | 2019-02-25 16:37 | MORECARE ---
CASE MANAGEMENT DISCHARGE SUMMARY PATIENT: ZEN KING UNIT: [id number] ADM DATE: 02/22/19 AGE: 58 : 60 SEX: F ROOM/BED: D.8596 AUTHOR: ORLANDO,DOC PHYSICIAN: REFERRING PHYSICIAN: KAYLEN AMARO MD DATE OF SERVICE: 02/25/19 Discharge Plan Patient Name: ZEN KING Facility: [facility]:[place] : 1960 Planned Disposition: Home Anticipated Discharge Date: 02/24/19 Discharge Date: Expected LOS: 2 Initial Reviewer: [email or web address] Initial Review Date: 02/22/2019 Generated: 02/25/19 5:36 pm DCP- Discharge Planning Updated by [email or web address]: Marsha Lunsford on 02/22/19 1:[address] DC PLAN: Return home with her . ANTICIPATED DC NEEDS: Denied home health or other dc needs. CM met with patient and her to complete initial dc planning assessment. CM educated patient on the CM role and verbal consent given by patient to complete assessment. CM verified patient's address, phone number, and emergency contact phone numbers. Patient lives at home with her who has been assisting in her care post op surgery dc January. She reports she has 38 karime from her procedure and she has been to Dr. Rodriguez office twice and has been told her incision is to moist and the karime are not ready to be removed. She also had her first scheduled appointment with Dr. Rivera today for renal failure. She and her family are requesting that both Dr. Barreto and Dr. Rivera be consulted so they will see her here in the hospital. CM called Linda ALTMAN with Dr. Amaro who gave order to consult both physicians. At discharge patient plans to return home and feels this is a safe discharge. CM discussed availability of home health, rehab services, and medical equipment. Patient denied known discharge needs at this time. Transportation provider at discharge will be her . CM will continue to follow and will assist as needed with dc plans/needs. Marsha Lunsford RN, [facility] DCPIA - Discharge Planning Initial Assessment Updated by [email or web address]: Marsha Lunsford on 02/22/19 2:30 pm * Is the patient Alert and Oriented? Yes * PCP Dr. Reina * Pharmacy [facility] near the [facility] * Preadmission Environment Home with Family * ADLs Partial Dependent * Partial ADLs (Assistance needed) Bathing Dressing * List name and contact numbers for known caregivers / representatives who currently or will assist patient after discharge: Clark King - spouse - [phone] * Verbal permission to speak to the caregivers and representatives has been obtained from the patient. Yes * Community resources currently utilized None * Additional services required to return to the preadmission environment? No * Can the patient safely return to the preadmission environment? Yes * Has this patient been hospitalized within the prior 30 days at any hospital? Yes Last DP export: 02/22/19 1:40 p Patient Name: ZEN KING Page [id number] at 1637 All edits/amendments must be made on the electronic document DICTATION DATE: 02/25/191635 BAKERY HELPER: CHLOE 02/25/191635 RPT#: [id number] DC DATE: STATUS: ADM IN [facility] [address] [place] [address] END OF REPORT
--- NOTE | 2019-02-25 16:48 | MORECARE ---
CASE MANAGEMENT DISCHARGE SUMMARY PATIENT: ZEN KING UNIT: [id number] ADM DATE: 02/22/19 AGE: 58 : 60 SEX: F ROOM/BED: D.1844 AUTHOR: ORLANDO,DOC PHYSICIAN: REFERRING PHYSICIAN: KAYLEN AMARO MD DATE OF SERVICE: 02/25/19 Discharge Plan Patient Name: ZEN KING Facility: [facility]:[place] : 1960 Planned Disposition: Home Anticipated Discharge Date: 02/24/19 Discharge Date: Expected LOS: 2 Initial Reviewer: [email or web address] Initial Review Date: 02/22/2019 Generated: 02/25/19 5:47 pm DCP- Discharge Planning Updated by [email or web address]: Marsha Lunsford on 02/22/19 1:[address] DC PLAN: Return home with her . ANTICIPATED DC NEEDS: Denied home health or other dc needs. CM met with patient and her to complete initial dc planning assessment. CM educated patient on the CM role and verbal consent given by patient to complete assessment. CM verified patient's address, phone number, and emergency contact phone numbers. Patient lives at home with her who has been assisting in her care post op surgery dc January. She reports she has 38 karime from her procedure and she has been to Dr. Rodriguez office twice and has been told her incision is to moist and the karime are not ready to be removed. She also had her first scheduled appointment with Dr. Rivera today for renal failure. She and her family are requesting that both Dr. Barreto and Dr. Rivera be consulted so they will see her here in the hospital. CM called Linda ALTMAN with Dr. Amaro who gave order to consult both physicians. At discharge patient plans to return home and feels this is a safe discharge. CM discussed availability of home health, rehab services, and medical equipment. Patient denied known discharge needs at this time. Transportation provider at discharge will be her . CM will continue to follow and will assist as needed with dc plans/needs. Marsha Lunsford RN, [facility] DCPIA - Discharge Planning Initial Assessment Updated by [email or web address]: Marsha Lunsford on 02/22/19 2:30 pm * Is the patient Alert and Oriented? Yes * PCP Dr. Reina * Pharm[place] [facility] [place] * Preadmission Environment Home with Family * ADLs Partial Dependent * Partial ADLs (Assistance needed) Bathing Dressing * List name and contact numbers for known caregivers / representatives who currently or will assist patient after discharge: Clark King - spouse - [phone] * Verbal permission to speak to the caregivers and representatives has been obtained from the patient. Yes * Community resources currently utilized None * Additional services required to return to the preadmission environment? No * Can the patient safely return to the preadmission environment? Yes * Has this patient been hospitalized within the prior 30 days at any hospital? Yes External Providers External Provider: [facility] Next Contact Date: 02/25/2019 Service Request Date: Service Type: Resolution: Reviewer: Comments: Coverage Notice Reviewer: [email or web address] Noble Notice Issued Date-Time: 02/25/2019 16:05 Notice Type: IM Discharge Notice Notice Delivered To: Patient Relationship to Patient: Chairman And Ceo Name: Delivery Method: HAND - Hand Delivered Nuha Days: Prior Verbal Notification: Recipient Understood Notice: Yes Recipient Signature: Yes Med Rec Note Co-signed by Attending: Coverage Notice Comment: Reviewer: [email or web address] Noble Notice Issued Date-Time: 02/25/2019 16:05 Notice Type: Patient Choice Letter Notice Delivered To: Patient Relationship to Patient: Chairman And Ceo Name: Delivery Method: HAND - Hand Delivered Nuha Days: Prior Verbal Notification: Recipient Understood Notice: Yes Recipient Signature: Yes Med Rec Note Co-signed by Attending: Coverage Notice Comment: SHAUN Valero DP export: 02/25/19 3:37 p Patient Name: ZEN KING Page [id number] at 1648 All edits/amendments must be made on the electronic document DICTATION DATE: 02/25/191646 PATROL MAN: CHLOE 02/25/191646 RPT#: [id number] DC DATE: STATUS: ADM IN [facility] [address] [place] [address] END OF REPORT
--- NOTE | 2019-02-25 16:58 | MORECARE ---
CASE MANAGEMENT DISCHARGE SUMMARY PATIENT: ZEN KING UNIT: [id number] ADM DATE: 02/22/19 AGE: 58 : 60 SEX: F ROOM/BED: D.0972 AUTHOR: ORLANDO,DOC PHYSICIAN: REFERRING PHYSICIAN: KAYLEN AMARO MD DATE OF SERVICE: 02/25/19 Discharge Plan Patient Name: ZEN KING Facility: [facility]:[place] : 1960 Planned Disposition: Home Anticipated Discharge Date: 02/24/19 Discharge Date: Expected LOS: 2 Initial Reviewer: [email or web address] Initial Review Date: 02/22/2019 Generated: 02/25/19 5:58 pm Comments DCP- Discharge Planning Updated by [email or web address]: Anatoly Noble on 02/25/19 3:[address] Patient Name: ZEN KING Encounter No: [id number] : 1960 Primary Insurance: [facility] MEDICARE [employer]UTIONS Anticipated DC Date: 02-24-2019 Planned Disposition: Home DCP follow-up note: CM MET WITH PT IN ROOM TO DISCUSS DISCHARGE NEEDS AND PLANNING. CM DISCUSSED AVAILABILITY OF HOME HEALTH, REHAB SERVICES AND MEDICAL EQUIPMENT. PT DENIES DISCHARGE NEEDS; REPORTS IF SHE NEEDS OXYGEN, [facility] C[facility] TO HER HOME. CHOICE LETTER SIGNED. SPOUSE TO TRANSPORT HOME AT DISCHARGE. IMPORTANT MESSAGE FROM MEDICARE PROVIDED AND EXPLAINED. CM RECEIVED OXYGEN TESTING, 88% ON ROOM AIR AT REST. CM CALLED DR. MONTESINOS AND RECEIVED OXYGEN ORDER. CM CALLED [facility], , SPOKE TO AYUSH WHO TOOK OXYGEN ORDER. CM FAXED OXYGEN ORDER TO [facility] AT [phone]. [facility] TO ARRANGE PORTABLE OXYGEN TO HOPITAL ROOM AND HOME OXYGEN FOR HOME DELIVERY AFTER PT ARRIVES HOME TODAY. PT AND SPOUSE NOTIFIED. TRANSPORTATION INSPECTOR NOTIFIED. Anatoly Noble CASE MANUEL DCP- Discharge Planning Updated by [email or web address]: Marsha Lunsford on 02/22/19 1:[address] DC PLAN: Return home with her . ANTICIPATED DC NEEDS: Denied home health or other dc needs. CM met with patient and her to complete initial dc planning assessment. CM educated patient on the CM role and verbal consent given by patient to complete assessment. CM verified patient's address, phone number, and emergency contact phone numbers. Patient lives at home with her who has been assisting in her care post op surgery dc January. She reports she has 38 karime from her procedure and she has been to Dr. Rodriguez office twice and has been told her incision is to moist and the karmie are not ready to be removed. She also had her first scheduled appointment with Dr. Rivera today for renal failure. She and her family are requesting that both Dr. Barreto and Dr. Rivera be consulted so they will see her here in the hospital. CM called Linda ALTMAN with Dr. Amaro who gave order to consult both physicians. At discharge patient plans to return home and feels this is a safe discharge. CM discussed availability of home health, rehab services, and medical equipment. Patient denied known discharge needs at this time. Transportation provider at discharge will be her . CM will continue to follow and will assist as needed with dc plans/needs. Marsha Lunsford RN, [facility] DCPIA - Discharge Planning Initial Assessment Updated by [email or web address]: Marsha Lunsford on 02/22/19 2:30 pm * Is the patient Alert and Oriented? Yes * PCP Dr. Reina * Pharmacy [facility] [place] * Preadmission Environment Home with Family * ADLs Partial Dependent * Partial ADLs (Assistance needed) Bathing Dressing * List name and contact numbers for known caregivers / representatives who currently or will assist patient after discharge: Clark King - [facility] - [phone] * Verbal permission to speak to the caregivers and representatives has been obtained from the patient. Yes * Community resources currently utilized None * Additional services required to return to the preadmission environment? No * Can the patient safely return to the preadmission environment? Yes * Has this patient been hospitalized within the prior 30 days at any hospital? Yes Coverage Notice Reviewer: [email or web address] Aakash Noble Notice Issued Date-Time: 02/25/2019 16:05 Notice Type: IM Discharge Notice Notice Delivered To: Patient Relationship to Patient: Automobile Body Repair Chief Name: Delivery Method: HAND - Hand Delivered Nuha Days: Prior Verbal Notification: Recipient Understood Notice: Yes Recipient Signature: Yes Med Rec Note Co-signed by Attending: Coverage Notice Comment: Reviewer: [id number] Noble Notice Issued Date-Time: 02/25/2019 16:05 Notice Type: Patient Choice Letter Notice Delivered To: Patient Relationship to Patient: Automobile Body [employer]air Chief Name: Delivery Method: HAND - Hand Delivered Nuha Days: Prior Verbal Notification: Recipient Understood Notice: Yes Recipient Signature: Yes Med Rec Note Co-signed by Attending: Coverage Notice Comment: SHAUN Valero DP export: 02/25/19 3:48 p Patient Name: ZEN KING Page [id number] at 1658 All edits/amendments must be made on the electronic document DICTATION DATE: 02/25/191657 TRAILER MECHANIC: CHLOE 02/25/191657 RPT#: [id number] DC DATE: STATUS: ADM IN [facility] [address] [place] [address] END OF REPORT
--- NOTE | 2019-02-25 18:11 | NUR ---
PATIENT IS DISCHARGED. ALL DISCHARGE TEACHING HAS BEEN DONE AND PAPERS SIGNED. IV IN RIGHT AC REMOVED WITH CATHETER INTACT. ALL PATINET BELONGINGS REMOVED FROM THE ROOM. PATIENT WENT HOME WITH FAMILY. SHE WENT DOWNSTAIRS BY WHEEL CHAIR. HEAD TO TOE ASSESSMENT COMPLETED AND CONCUR WITH DR OPINION THAT THIS PATIENT IS SAFE TO BE DISCHARGED. WOUND CARE TEACHING COMPLETE.
== END 2019-02-25 18:14 | disposition home or self-care (01) | DRG 280 ==
LOC: D.ER 11:36 → D.M2 13:06
PROVIDERS: Family Medicine; Internal Medicine Nephrology; ADMIT Internal Medicine Nephrology; ATTEND Internal Medicine Nephrology
DX: I13.0 Hypertensive heart and chronic kidney disease with heart failure and stage 1 through stage 4 chronic kidney disease, or unspecified chronic kidney disease (principal); J96.02 Acute respiratory failure with hypercapnia; I21.4 Non-ST elevation (NSTEMI) myocardial infarction; I50.21 Acute systolic (congestive) heart failure; J96.01 Acute respiratory failure with hypoxia; N17.9 Acute kidney failure, unspecified; J44.1 Chronic obstructive pulmonary disease with (acute) exacerbation; F17.213 Nicotine dependence, cigarettes, with withdrawal; N18.3 Chronic kidney disease, stage 3 (moderate); I25.10 Atherosclerotic heart disease of native coronary artery without angina pectoris; D63.1 Anemia in chronic kidney disease; E78.5 Hyperlipidemia, unspecified; K12.1 Other forms of stomatitis; K21.9 Gastro-esophageal reflux disease without esophagitis

== ENCOUNTER 2019-03-24 12:35 | Emergency (ER) | payer MEDICARE ==
[~2019-03-24] VITALS: Ht 149.9 cm; Wt 68.2 kg
[~2019-03-24 12:35] MED LIST changes: +CLEOCIN HCL300 MG PO; +JANUVIA25 MG PO
[2019-03-24 12:43] VITALS: Ht 149.9 cm; Wt 68.2 kg
[2019-03-24 13:12] LABS: BASOPHILS 0.3 % (0-2); EOSINOPHILS 1.4 % (0-7); HEMATOCRIT 27.4 % (36.0-48.0); IMMATURE GRANULOCYTES 0.6 % (0-5); LYMPHOCYTES 10.3 % (15-50); MCH 25.6 pg (26.0-34.0); MCHC 29.2 g/dL (31.0-37.0); MCV 87.5 fL (80.0-100.0); MEAN PLATELET VOLUME 9.3 fL (7.4-10.4); MONOCYTES 6.2 % (2-11); NEUTROPHILS 81.2 % (40-80); PLATELET COUNT 336 10x3/uL (130-400); RBC 3.13 10x6/uL (4.00-5.40); RDW 17.9 % (11.5-14.5); WBC 11.8 10x3/uL (4.8-10.8)
[2019-03-24 13:25] LABS: CALC OSMOLALITY 293 mosm/kg (275-300); CALCIUM 8.9 mg/dL (8.5-10.1); CHLORIDE - SERUM 102 mmol/L (98-107); CREATININE - SERUM 1.8 mg/dL (0.6-1.3); GLUCOSE 110 mg/dL (74-106); POTASSIUM - SERUM 4.4 mmol/L (3.5-5.1); SODIUM 143 mmol/L (136-145); UREA NITROGEN 35 mg/dL (7-18); eGFR NON AFRICAN AMERICAN 31 mL/min (90-120)
[2019-03-24 13:30] LABS: PROTIME 12.7 SECONDS (11.6-15.0)
[2019-03-24 13:31] LABS: APTT 30.9 SECONDS (22.8-39.4)
[2019-03-24 13:44] LABS: ALBUMIN 3.1 g/dL (3.4-5.0); ALKALINE PHOSPHATASE 146 U/L (46-116); ALT (SGPT) 40 U/L (10-68); BILIRUBIN - TOTAL 0.24 mg/dL (0.2-1.3); CREATINE KINASE 35 UL (21-215); PRO BNP 4240 pg/mL (0-125); PROTEIN - SERUM 6.3 g/dL (6.4-8.2); TROPONIN-I < 0.017 ng/mL (0.000-0.060)
[2019-03-24 15:23] VITALS: BP 149/85
[2019-03-24] MEDS ORDERED: ALBUTEROL SULF8.5 GM INH (15:28)
[2019-03-24] MEDS ORDERED: STERAPRED 5MG 125 MG PO (15:28)
[2019-03-24] MEDS ORDERED: ZPAK PO (15:28)
== END 2019-03-24 15:40 | disposition home or self-care (01) ==
LOC: D.ER 12:35
PROVIDERS: Emergency Medicine
DX: J44.1 Chronic obstructive pulmonary disease with (acute) exacerbation (principal); E11.9 Type 2 diabetes mellitus without complications; Z72.0 Tobacco use; I10 Essential (primary) hypertension; I25.2 Old myocardial infarction; Z99.81 Dependence on supplemental oxygen